=== PATIENT | female | born 1980 | race Caucasian/White ===

== ENCOUNTER 2017-02-08 19:56 | Emergency (ER) | payer BC, OTHER ==
[~2017-02-08 19:56] MED LIST: BUSP7.5T4 PO; IBUP600 PO
--- NOTE | 2017-02-08 21:16 | PD ---
HPI Chief Complaint High blood pressure Date Seen: Feb 08, 2017 Travel History International Travel<30 Days: No Contact w/Intl Traveler<30Days: No Known Affected Area: No History of Present Illness HPI Patient is 36-year-old white female [address] Bowers for care who has a history of chronic hypertension on medication now Aldomet 2 g daily and labetalol 50 mg twice a day, and the patient was at home today and she'll that her daughter take her blood pressure and it was high so she went to [facility] in her blood pressure checked and was 160/110 so she wanted to come here to be checked out. She has no headache blurry vision pain of any kind, no leakage of fluid or bleeding. No contractions seen, heart rate 140s. Blood pressures here are in the 137 to 150s over 90s which for chronic hypertensive is pretty normal blood pressures, urinalysis shows trace protein only Para: 2 : 5 History Past Medical History Narrative Medical Essential hypertension Obstetric History Obstetric History 2 vaginal deliveries 2 other early losses Social History Alcohol Use: No Tobacco Use: No Substance Abuse: No Allergies-Medications (Allergen,Severity, Reaction): Coded Allergies: No Known Allergies (Unverified , 01/13/15) Home Meds Active Scripts Buspirone Hcl 7.5 Mg Tab7.5 Mg PO BID #60 TAB Ref 1 Prov:Jo Bowers MD 11/05/15 Ibuprofen (Motrin 600 Mg Tab)600 Mg [id number] Mg PO Q6H PRN (CRAMPS) #30 TAB Ref 1 Prov:Jo Bowers MD 11/05/15 Review of Systems General / Constitutional: No: Fever, Weight Gain, Chills, Other Eyes: No: Diploplia, Blurred Vision, Visual changes, Pain, Photophobia HENT: No: Headaches, Vertigo, Lightheadedness Cardiovascular: No: Irregular Rhythm, Chest Pain or Discomfort, Palpitations, Tachycardia, Syncope, Varicosities, Edema, Cyanosis Respiratory: No: Cough, Short of Breath, Other Gastrointestinal: No: Nausea, Vomiting, Diarrhea Genitourinary: No: Decreased Urinary Output, Oliguria Musculoskeletal: No: Limited ROM, Weakness, Cramping, Edema, Pain Skin: No Rash, No Itching, No Dryness, No Lumps, No Change in Pigmentation, No Change in Nails, No Alopecia, No Lesions Neurologic: No: Weakness, Dizziness, Syncope, Focal Abnormalities, Coordination Problem, Headache, Slurred Speech, Seizures Psychiatric: No: Depression, Suicidal Ideations, Homicidal Ideation Endocrine: No: Heat Intolerance, Cold Intolerance, Polydipsia, Polyuria, Other Physical Exam Narrative GENERAL: Well-nourished, well-developed patient. SKIN: Warm and dry. HEAD: Normocephalic and atraumatic. EYES: No scleral icterus. No injection or drainage. ENT: No nasal drainage noted. Mucous membranes pink. Airway patent. NECK: Supple, trachea midline. No JVD. CARDIOVASCULAR: Regular rate and rhythm without murmurs, gallops, or rubs. RESPIRATORY: Breath sounds equal bilaterally. No accessory muscle use. BREASTS: Bilateral exam showed no masses , no retractions, no nipple discharge. ABDOMEN/GI: Abdomen soft, non-tender, bowel sounds present, no rebound, no guarding Gravid to [-20] weeks size Fundal Height: [At umbilicus-] GENITOURINARY: External Genitalia: intact and normal in appearance Membranes: [intact ] Uterine Contractions: [none-] FHT's: 140s ] E XTREMITIES: No cyanosis or edema. BACK: Nontender without obvious deformity. No CVA tenderness. NEUROLOGICAL: Awake and alert. Motor and sensory grossly within normal limits. Five out of 5 muscle strength in all muscle groups. Normal speech. Data Data Labs Urine dip trace protein only MDM Interpretation(s) Patient is 36-year-old white female at 20 weeks gestation followed in the [facility] a clinic has a history of chronic hypertension on 2 medications now[Aldomet 2 g a day and labetalol 50 mg twice a day], and had hypertension noted today in the 160+ over 110 range here on OB ED pressures are stable in the 137-150 over 90s range, urine was trace protein dip, heart tones within normal limits Plan Plan to discharge patient home to increase rest as needed to follow-up with Dr. Bowers for adjusting her medication she may need increase her labetalol 100 twice a day. Diagnosis Diagnosis: Primary Impression: 20 weeks gestation of Additional Impression: Chronic hypertension during , antepartum Disposition: 01 DISCHARGE HOME Condition: Stable Candido Richey II, MD Feb 08, 2017 21:16
== END 2017-02-08 21:57 | disposition home or self-care (01) ==
LOC: HOBED 19:56
DX: O16.2 Unspecified maternal hypertension, second trimester (principal); Z3A.20 20 weeks gestation of pregnancy
CPT/HCPCS: 99282

== ENCOUNTER 2017-05-20 16:19 | Inpatient (IN) | payer OTHER ==
[2017-05-20] VITALS (9 sets, daily range): BP systolic 151–179; BP diastolic 85–113; PULSE 85–99; RESP 16–18; TEMP 97.7–97.9
[~2017-05-20] VITALS: Ht 170.2 cm; Wt 102.5 kg
[2017-05-20 17:19] LABS: BLOOD, URINE NEG (NEG); GLUCOSE,URINE NEG (NEG); KETONE, URINE NEG (NEG); NITRITE,URINE NEG (NEG); PH, URINE 6.5 (5.0-8.5); SQUAMOUS EPITHELIAL CELL URINE <1 /hpf (0-5); URINE COLOR LIGHT-YELLOW (YELLW/STRAW)
[2017-05-20 17:20] LABS: COMMENT (UR) CULT NOT INDICATED; CULTURE IF INDICATED CULT NOT INDICATED
--- NOTE | 2017-05-20 17:36 | PD ---
HPI Chief Complaint High blood pressure Date Seen: May 20, 2017 Time Seen: 17:55 Travel History International Travel<30 Days: No Contact w/Intl Traveler<30Days: No Known Affected Area: No History of Present Illness HPI Patient is a 37-year-old white female 34 weeks who has a history of high blood pressure and is on Aldomet 2000 mg daily and labetalol by mouth 100 mg in the morning and 50 mg in the evening . Has No other complaints or problems no headache or visual changes right upper quadrant pain or swelling, heart rate tracing is reactive she is having occasional contractions Weeks Gestation: 34 Para: 2 : 5 Last Menstrual Period: May 20, 2017 History Past Medical History Narrative Medical Chronic hypertension long-term Obstetric History Obstetric History 2 vaginal deliveries in the past and 2 early losses Social History Alcohol Use: No Tobacco Use: No Substance Abuse: No Allergies-Medications (Allergen,Severity, Reaction): Coded Allergies: No Known Allergies (Unverified , 01/13/15) Home Meds Active Scripts Buspirone Hcl (Buspirone Hcl) 7.5 Mg Tab, 7.5 MG PO BID for Anxiety, #60 TAB 1 Refill Prov:Jo Bowers MD 11/05/15 Ibuprofen (Motrin 600 Mg Tab) 600 Mg Tab, 600 MG PO Q6H Y for CRAMPS, #30 TAB 1 Refill Prov:Jo Bowers MD 11/05/15 Review of Systems General / Constitutional: No: Fever, Weight Gain, Chills, Other Eyes: No: Diploplia, Blurred Vision, Visual changes, Pain, Photophobia HENT: No: Headaches, Vertigo, Lightheadedness Cardiovascular: No: Irregular Rhythm, Chest Pain or Discomfort, Palpitations, Tachycardia, Syncope, Varicosities, Edema, Cyanosis Respiratory: No: Cough, Short of Breath, Other Gastrointestinal: No: Nausea, Vomiting, Diarrhea Genitourinary: No: Decreased Urinary Output, Oliguria Musculoskeletal: No: Limited ROM, Weakness, Cramping, Edema, Pain Skin: No Rash, No Itching, No Dryness, No Lumps, No Change in Pigmentation, No Change in Nails, No Alopecia, No Lesions Neurologic: No: Weakness, Dizziness, Syncope, Focal Abnormalities, Coordination Problem, Headache, Slurred Speech, Seizures Psychiatric: No: Depression, Suicidal Ideations, Homicidal Ideation Endocrine: No: Heat Intolerance, Cold Intolerance, Polydipsia, Polyuria, Other Physical Exam Vital Signs Date Time Temp Pulse Resp B/P (MAP) Pulse Ox O2 Delivery O2 Flow Rate FiO2 05/20/17 17:15 86 164/105 (124) 05/20/17 17:01 87 05/20/17 17:01 158/107 (124) Narrative GENERAL: Well-nourished, well-developed patient. SKIN: Warm and dry. HEAD: Normocephalic and atraumatic. EYES: No scleral icterus. No injection or drainage. ENT: No nasal drainage noted. Mucous membranes pink. Airway patent. NECK: Supple, trachea midline. No JVD. CARDIOVASCULAR: Regular rate and rhythm without murmurs, gallops, or rubs. RESPIRATORY: Breath sounds equal bilaterally. No accessory muscle use. BREASTS: Bilateral exam showed no masses , no retractions, no nipple discharge. ABDOMEN/GI: Abdomen soft, non-tender, bowel sounds present, no rebound, no guarding Gravid to [34-] weeks size Fundal Height: [-34] GENITOURINARY: Membranes: [intact ] Uterine Contractions: [occasional not painful-] FHT's: Category: [-1] Baseline: [133-] Reactive: [-yes] Variability: [mod-] Decels: [0-] EXTREMITIES: No cyanosis or edema. BACK: Nontender without obvious deformity. No CVA tenderness. NEUROLOGICAL: Awake and alert. Motor and sensory grossly within normal limits. Five out of 5 muscle strength in all muscle groups. Normal speech. Data Data Orders Orders Vital Signs (Adult) .ON ADMISSION (05/20/17 16:59) ^ Labor Status (05/20/17 16:59) Urinalysis - C+S If Indicated (05/20/17 16:59) Labs Urine dipstick is negative for protein Laboratory Tests Test 05/20/17 00:00 Urine Color LIGHT-YELLOW Urine Turbidity CLEAR Urine pH 6.5 Urine Specific Lykens 1.003 Urine Protein NEG Urine Glucose (UA) NEG Urine Ketones NEG Urine Occult Blood NEG Urine Nitrite NEG Urine Bilirubin NEG Urine Urobilinogen LESS THAN 2.0 Urine Leukocyte Esterase NEG Urine WBC 1 Urine Squamous Epithelial Cells <1 Microscopic Urinalysis Comment CULT NOT INDICATED MDM Interpretation(s) Patient is a 37-year-old white female at [address] Bowers for care she noted her pressure high at home and called the office and the on-call nurse told her to come here. She takes 2000 mg of Aldomet daily, labetalol 100 mg the morning and 50 at night.. And as long she's laying down his pressures are acceptable in the 130 over 80s or 150/90 range. However when she stands up and is active and she says she is active running around all day her blood pressures are 170/100 or 110 she had her blood drawn today for a CMP and CBC those results are unknown there were drawn an outside lab, she is urinalysis here tonight with negative protein her NST is reactive and she is having occasional contraction that she does not feel Plan Plan for the patient to increase her labetalol dose to 100 twice a day, to continue her Aldomet she takes currently but she says Dr. Bowers is planning to increase that to 3000 mg a day. She is also encouraged to increase the amount of rest that she is getting now that she says she's very active and going all day long; she needs to cut back on that and be off her feet a little bit more [not strictly bedrest] but to be at increased rest throughout the day periodically, and a follow-up with Dr. Bowers tomorrow about her lab results drawn today and her pressures running Diagnosis Diagnosis: Primary Impression: Chronic hypertension during , antepartum Additional Impression: 34 weeks gestation of Disposition: 01 DISCHARGE HOME Condition: Stable Candido Richey II, MD May 20, 2017 17:36
[2017-05-20] MEDS ORDERED: GLUCAGON 1 MG/ML VIAL IM PRN (19:15)
[2017-05-20] MEDS ORDERED: SODIUM CHLORIDE 0.9% FLUSH 5 ML FLUSH IV FLUSH PRN (19:15)
[2017-05-20] MEDS ORDERED: NIFEdipine 10 MG CAP PO PRN ×3 (19:15→20:00)
[2017-05-20] MEDS ORDERED: DOCUSATE SODIUM 100 MG CAP PO PRN (19:15)
[2017-05-20] MEDS ORDERED: DEXTROSE 50% IN WATER 50 ML VIAL(D50) IV PUSH PRN (19:15)
[2017-05-20] MEDS ORDERED: ONDANSETRON HCL 4 MG/2 ML VIAL IV PUSH PRN (19:15)
[2017-05-20] MEDS: LABETALOL HCL 100 MG TAB PO SCH ×2 (19:30→19:42)
[2017-05-20] MEDS ORDERED: LIDOCAINE HCL 1% 50 ML VIAL ONE (19:33)
[2017-05-20] MEDS: METHYLDOPA 500 MG TAB PO SCH ×2 (19:39→19:42)
[2017-05-20] MEDS: SODIUM CHLORIDE 0.9% FLUSH 5 ML FLUSH IV FLUSH SCH (19:43)
[2017-05-20] MEDS ORDERED: LABE100T2 PO (19:46)
[2017-05-20] MEDS ORDERED: METH500T PO (19:47)
[2017-05-20] MEDS ORDERED: Prenatal Vitamin PO (19:51)
[2017-05-20] MEDS: BETAMETHASONE SOD PHOS/ACETATE SUSP 30 MG/5 ML VIAL IM SCH (20:16)
[2017-05-20] MEDS: ACETAMINOPHEN 325 MG TAB PO PRN (20:23)
[2017-05-20 20:58] LABS: HEMATOCRIT 33.9 % (35.0-46.0); MEAN CELL VOLUME 83.4 FL (80.0-100.0); MEAN CORPUSCULAR HEMOGLOBIN 27.5 PG (27.0-34.0); PLATELET COUNT 198 TH/MM3 (150-450); RED BLOOD COUNT 4.07 MIL/MM3 (4.00-5.30); RED CELL DISTRIBUTION WIDTH 13.9 % (11.6-17.2); REVIEW FLAG FINAL
[2017-05-20 21:21] LABS: ALT (GPT) 30 U/L (10-53)
[2017-05-20 21:23] LABS: ALKALINE PHOSPHATASE 77 U/L (45-117); TOTAL BILIRUBIN ADULT 0.2 MG/DL (0.2-1.0)
[2017-05-20 21:29] LABS: ANION GAP 10 MEQ/L (5-15); AST (GOT) 32 U/L (15-37); BICARBONATE 22.3 MEQ/L (21.0-32.0); BLOOD UREA NITROGEN 9 MG/DL (7-18); CHLORIDE 105 MEQ/L (98-107); GLOMERULAR FILTRATION RATE 83 ML/MIN (>89); POTASSIUM 4.2 MEQ/L (3.5-5.1); SODIUM (NA) 137 MEQ/L (136-145); URIC ACID 4.5 MG/DL (2.6-6.0)
[2017-05-20] MEDS ORDERED: FAMOTIDINE 20 MG TAB PO PRN (23:00)
[2017-05-21] VITALS (18 sets, daily range): BP systolic 134–177; BP diastolic 84–104; PULSE 77–104; RESP 13–18; TEMP 97.7–98.1
[2017-05-21] MEDS: ACETAMINOPHEN 325 MG TAB PO PRN (04:36)
[2017-05-21 05:56] LABS: HEMATOCRIT 34.7 % (35.0-46.0); MEAN CELL VOLUME 83.8 FL (80.0-100.0); MEAN CORPUSCULAR HEMOGLOBIN 27.9 PG (27.0-34.0); MEAN CORPUSCULAR HGB CONC 33.2 % (32.0-36.0); PLATELET COUNT 196 TH/MM3 (150-450); RED BLOOD COUNT 4.14 MIL/MM3 (4.00-5.30); RED CELL DISTRIBUTION WIDTH 13.9 % (11.6-17.2); REVIEW FLAG FINAL; WHITE BLOOD COUNT 8.1 TH/MM3 (4.0-11.0)
[2017-05-21 06:35] LABS: ANION GAP 12 MEQ/L (5-15); AST (GOT) 19 U/L (15-37); BICARBONATE 18.8 MEQ/L (21.0-32.0); BLOOD UREA NITROGEN 10 MG/DL (7-18); CHLORIDE 106 MEQ/L (98-107); GLOMERULAR FILTRATION RATE 106 ML/MIN (>89); POTASSIUM 4.2 MEQ/L (3.5-5.1); SODIUM (NA) 137 MEQ/L (136-145); URIC ACID 4.4 MG/DL (2.6-6.0)
[2017-05-21 06:36] LABS: ALT (GPT) 28 U/L (10-53)
[2017-05-21 06:38] LABS: ALKALINE PHOSPHATASE 81 U/L (45-117); TOTAL BILIRUBIN ADULT 0.2 MG/DL (0.2-1.0)
--- NOTE | 2017-05-21 08:34 | HHI.HP ---
HPI Chief Complaint admitted overnight for severe range BPs in setting of CHTN Date Seen: May 20, 2017 Time Seen: 19:00 Travel History International Travel<30 Days: No Contact w/Intl Traveler<30Days: No Known Affected Area: No History of Present Illness HPI 37 yo with tompkins male IUP at 34w6d admit last evening after coming in for reported elevated BPs at home. Has chronic hypertension, had been taking aldomet 1000mg bid and labetalol 100mg qAM and 50mg QPM. Had increased her dose of labetalol to 100mg bid yesterday but pressures at home remained severe range 170s/100s reported. On triage evaluation pressures were similarly elevated and decision for 23h obs and PreEclampsia workup. Pt is without symptoms, no edema, no vision changes, no headache, no RUQ pain. Labs are wnl last evening and this morning as well. has been complicated by CHTN as well as GDM diet controlled and AMA status. Testing has been normal weekly starting at 28 weeks outpatient. Pain currently 0/10. Did require single dose procardia on admission with good control of BP. 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 Past Surgical History Surgical History: No Previous Surgery Family History Family History: Negative Social History Alcohol Use: No Tobacco Use: No Substance Abuse: No Allergies-Medications (Allergen,Severity, Reaction): Coded Allergies: No Known Allergies (Unverified , 01/13/15) Home Meds Reported Medications [ Vitamin] No Conflict Check, 1 TAB PO DAILY 05/20/17 Methyldopa (Methyldopa) 500 Mg Tab, 1000 MG PO TID for Blood Pressure Management , TAB 0 Refills 05/20/17 Labetalol (Labetalol) 100 Mg Tab, 100 MG PO BID for Blood Pressure Management, TAB 0 Refills 05/20/17 Discontinued Scripts Buspirone Hcl (Buspirone Hcl) 7.5 Mg Tab, 7.5 MG PO BID for Anxiety, #60 TAB 1 Refill Prov:Jo Bowers MD 11/05/15 Ibuprofen (Motrin 600 Mg Tab) 600 Mg Tab, 600 MG PO Q6H Y for CRAMPS, #30 TAB 1 Refill Prov:Jo Bowers MD 11/05/15 Review of Systems General / Constitutional: Weight Gain, No: Fever, Chills, Other Eyes: No: Diploplia, Blurred Vision, Visual changes, Pain, Photophobia HENT: No: Headaches, Vertigo, Lightheadedness Cardiovascular: No: Irregular Rhythm, Chest Pain or Discomfort, Palpitations, Tachycardia, Syncope, Varicosities, Edema, Cyanosis Respiratory: No: Cough, Short of Breath, Other Gastrointestinal: No: Nausea, Vomiting, Diarrhea Genitourinary: Pelvic Pain (irregular pressure/cramps), No: Decreased Urinary Output, Oliguria Musculoskeletal: No: Limited ROM, Weakness, Cramping, Edema, Pain Skin: No Rash, No Itching, No Dryness, No Lumps, No Change in Pigmentation, No Change in Nails, No Alopecia, No Lesions Neurologic: No: Weakness, Dizziness, Syncope, Focal Abnormalities, Coordination Problem, Headache, Slurred Speech, Seizures Psychiatric: No: Depression, Suicidal Ideations, Homicidal Ideation Endocrine: No: Heat Intolerance, Cold Intolerance, Polydipsia, Polyuria, Other Physical Exam Vital Signs Date Time Temp Pulse Resp B/P (MAP) Pulse Ox O2 Delivery O2 Flow Rate FiO2 05/21/17 03:44 88 145/86 (105) 05/21/17 03:00 97.7 05/21/17 03:00 13 05/21/17 03:00 95 134/84 (101) 05/20/17 23:00 97.9 18 05/20/17 22:35 97 151/85 (107) 05/20/17 20:03 85 156/100 (118) 05/20/17 19:40 16 05/20/17 19:29 89 178/102 (127) 05/20/17 19:11 97.7 05/20/17 19:10 99 179/113 (135) 05/20/17 17:15 86 164/105 (124) 05/20/17 17:01 87 05/20/17 17:01 158/107 (124) Narrative GENERAL: Well-nourished, well-developed patient. SKIN: Warm and dry. HEAD: Normocephalic and atraumatic. EYES: No scleral icterus. No injection or drainage. ENT: No nasal drainage noted. Mucous membranes pink. Airway patent. NECK: Supple, trachea midline. No JVD. CARDIOVASCULAR: Regular rate and rhythm without murmurs, gallops, or rubs. RESPIRATORY: Breath sounds equal bilaterally. No accessory muscle use. BREASTS: deferred. ABDOMEN/GI: Abdomen soft, non-tender, bowel sounds present, no rebound, no guarding Gravid to [34] weeks size Fundal Height: [35] GENITOURINARY: deferred FHT's: Category:I reactive tracing overnight EXTREMITIES: No cyanosis or edema. BACK: Nontender without obvious deformity. No CVA tenderness. NEUROLOGICAL: Awake and alert. Motor and sensory grossly within normal limits. Five out of 5 muscle strength in all muscle groups. Normal speech. Caprini VTE Risk Assessment Caprini VTE Risk Assessment: No/Low Risk (score <= 1) VTE Pharm Contraindication: High risk for bleeding Caprini Risk Assessment Model Point Value = 1 Point Value = 2 Point Value = 3 Point Value = 5 Age 41-60 Minor surgery BMI > 25 kg/m2 Swollen legs Varicose veins or History of unexplained or recurrent spontaneous Oral contraceptives or hormone replacement Sepsis (< 1 month) Serious lung disease, including pneumonia (< 1 month) Abnormal pulmonary function Acute myocardial infarction Congestive heart failure (< 1 month) History of inflammatory bowel disease Medical patient at bed rest Age 61-74 Arthroscopic surgery Major open surgery (> 45 min) Laparoscopic surgery (> 45 min) Malignancy Confined to bed (> 72 hours) Immobilizing plaster cast Central venous access Age >= 75 History of VTE Family history of VTE Factor V Leiden Prothrombin [id number] Lupus anticoagulant Anticardiolipin antibodies Elevated serum homocysteine Heparin-induced thrombocytopenia Other congenital or acquired thrombophilia Stroke (< 1 month) Elective arthroplasty Hip, pelvis, or leg fracture Acute spinal cord injury (< 1 month) Prophylaxis Regimen Total Risk Factor Score Risk Level Prophylaxis Regimen 0-1 Low Early ambulation 2 Moderate Order ONE of the following: *Sequential Compression Device (SCD) *Heparin 5000 units SQ BID 3-4 Higher Order ONE of the following medications: *Heparin 5000 units SQ TID *Enoxaparin/Lovenox 40 mg SQ daily (WT < 150 kg, CrCl > 30 mL/min) *Enoxaparin/Lovenox 30 mg SQ daily (WT < 150 kg, CrCl > 10-29 mL/min) *Enoxaparin/Lovenox 30 mg SQ BID (WT < 150 kg, CrCl > 30 mL/min) AND/OR *Sequential Compression Device (SCD) 5 or more Highest Order ONE of the following medications: *Heparin 5000 units SQ TID (Preferred with Epidurals) *Enoxaparin/Lovenox 40 mg SQ daily (WT < 150 kg, CrCl > 30 mL/min) *Enoxaparin/Lovenox 30 mg SQ daily (WT < 150 kg, CrCl > 10-29 mL/min) *Enoxaparin/Lovenox 30 mg SQ BID (WT < 150 kg, CrCl > 30 mL/min) AND *Sequential Compression Device (SCD) Data Data Vital Signs Reviewed: Yes Orders Orders Vital Signs (Adult) .ON ADMISSION (05/20/17 16:59) ^ Labor Status (05/20/17 16:59) Urinalysis - C+S If Indicated (05/20/17 16:59) Ob (2e) Additional Admit Info (05/20/17 18:33) Place In Observation (05/20/17 ) Code Status (05/20/17 19:06) Resp Pulse Oximetry (05/20/17 ) Activity Bed Rest (05/20/17 19:06) Notify Parameters (05/20/17 19:06) Heart CONTINUOUS (05/20/17 19:06) Sodium Chloride 0.9% Flush (Ns Flush) (05/20/17 19:15) Sodium Chloride 0.9% Flush (Ns Flush) (05/20/17 21:00) Nifedipine (Procardia) (05/20/17 19:15) Nifedipine (Procardia) (05/20/17 19:30) Nifedipine (Procardia) (05/20/17 20:00) Betamethasone Inj (Celestone Soluspan In (05/20/17 20:00) Acetaminophen (Tylenol) (05/20/17 19:15) Ondansetron Inj (Zofran Inj) (05/20/17 19:15) Docusate Sodium (Colace) (05/20/17 19:15) Shcqneqw-Rym-Dbtaw-Iron Prenat (Stuartna (05/21/17 09:00) Zolpidem (Ambien) (05/20/17 19:15) Cbc No Diff, Includes Plts (05/20/17 19:06) Cbc No Diff, Includes Plts (05/21/17 06:00) Comprehensive Metabolic Panel (05/20/17 19:06) Comprehensive Metabolic Panel (05/21/17 06:00) Uric Acid (05/20/17 19:06) Uric Acid (05/21/17 06:00) Total Protein 24hr Urine (05/20/17 19:06) Creatinine 24 Hr Urine (05/20/17 19:06) Diet Ob Consistent Carb (05/21/17 Breakfast) Vital Signs (Adult) [id number] AWAKE (05/20/17 19:06) Bedside Glucose . ORDERED (05/20/17 19:06) Bedside Glucose Q15M (05/20/17 19:06) Hypoglycemia 70 Mg/Dl Or < (05/20/17 19:06) Dextrose 50% In Katlyn (Vial) Inj (D50w (Vi (05/20/17 19:15) Glucagon Inj (Glucagon Inj) (05/20/17 19:15) Methyldopa (Aldomet) (05/20/17 20:00) Labetalol (Trandate) (05/20/17 19:30) Lidocaine 1% Inj (50 Ml) (Xylocaine 1% I (05/20/17 19:33) ^ Insert Iv (05/20/17 19:57) Famotidine (Pepcid) (05/20/17 23:00) Scd / Dani / Foot Pump (05/21/17 08:04) Us Ob Bpp Wo Nst W Umb Art Dop (05/21/17 ) Us Ob Repeat/Fu(Growth) (05/21/17 ) Labs Laboratory Tests Test 05/20/17 19:45 05/21/17 05:14 White Blood Count 8.0 8.1 Red Blood Count 4.07 4.14 Hemoglobin 11.2 11.5 Hematocrit 33.9 34.7 Mean Corpuscular Volume 83.4 83.8 Mean Corpuscular Hemoglobin 27.5 27.9 Mean Corpuscular Hemoglobin Concent 33.0 33.2 Red Cell Distribution Width 13.9 13.9 Platelet Count 198 196 Mean Platelet Volume 10.2 10.3 Blood Urea Nitrogen 9 10 Creatinine 0.78 0.63 Random Glucose 157 130 Total Protein 6.2 6.3 Albumin 2.4 2.4 Calcium Level 8.9 8.6 Uric Acid 4.5 4.4 Alkaline Phosphatase 77 81 Aspartate Amino Transf (AST/SGOT) 32 19 Alanine Aminotransferase (ALT/SGPT) 30 28 Total Bilirubin 0.2 0.2 Sodium Level 137 137 Potassium Level 4.2 4.2 Chloride Level 105 106 Carbon Dioxide Level 22.3 18.8 Anion Gap 10 12 Estimat Glomerular Filtration Rate 83 106 Assessment/Plan Problem List: (1) Chronic hypertension during , antepartum ICD Codes: O10.919 - Unspecified pre-existing hypertension complicating , unspecified trimester Status: Acute (2) 34 weeks gestation of ICD Codes: Z3A.34 - 34 weeks gestation of Status: Acute (3) Gestational diabetes ICD Codes: O24.419 - Gestational diabetes mellitus in , unspecified control Status: Acute Qualifiers: Qualified Codes: O24.410 - Gestational diabetes mellitus in , diet controlled (4) AMA (advanced maternal age) multigravida 35+ ICD Codes: O09.529 - Supervision of elderly multigravida, unspecified trimester Status: Acute Qualifiers: Qualified Codes: O09.523 - Supervision of elderly multigravida, third trimester Assessment and Plan 37 yo with tompkins male IUP at 34w5d admit overnight for severe range BPs in setting of CHTN 1) CHTN: on aldomet 1000mg bid and labetalol 100mg bid as outpatient, on admission last evening requiring single dose procardia with good result; no severe range BPs overnight, continue to monitor closely for additional medication adjustment as needed - 24h urine started, due to end around 1900 tonight - PI labs wnl x 2 - asymptomatic at this time, denies ZAMORA, vision changes, RUQ pain, edema - betamethasone ordered, s/p 1/2 doses 2) GDM: very good control with diet; due to administration of betamethasone will hold glucose checks today; has had excellent control as outpatient, pt diligent with diet/nutrition 3) AMA: normal anatomy sono, neg cfDNA and msAFP; has had testing weekly since 28 wks due to CHTN & GDM & AMA; all reassuring 4) GBS unknown: swab performed yesterday in office, pending 5) status: male, vertex; official sono with weight estimate ordered for today; Cat I tracing overnight 6) PPX: SCDs ordered 7) dispo: not meeting criteria, continue to monitor closely at this time Discharge Planning not meeting criteria Jo Bowers MD May 21, 2017 08:33
[2017-05-21] MEDS: SODIUM CHLORIDE 0.9% FLUSH 5 ML FLUSH IV FLUSH SCH ×2 (09:00→21:00)
[2017-05-21] MEDS: MULTIVIT/MIN/PREN/FOL AC/IRON PRENATAL TAB PO SCH (09:09)
[2017-05-21] MEDS: LABETALOL HCL 100 MG TAB PO SCH (09:09)
[2017-05-21] MEDS: METHYLDOPA 500 MG TAB PO SCH ×2 (09:09→21:00)
[2017-05-21] MEDS: FAMOTIDINE 20 MG TAB PO PRN (14:25)
[2017-05-21] MEDS ORDERED: LABETALOL HCL 100 MG/20 ML VIAL ONE (19:27)
[2017-05-21] MEDS ORDERED: LABETALOL HCL 100 MG/20 ML VIAL IV PUSH ONE (19:45)
[2017-05-21] MEDS ORDERED: NIFEdipine 10 MG CAP ONE (20:07)
[2017-05-21] MEDS: BETAMETHASONE SOD PHOS/ACETATE SUSP 30 MG/5 ML VIAL IM SCH (20:15)
[2017-05-21 20:22] LABS: URINE TOTAL PROTEIN TIMED 29.4 MG/DL
[2017-05-21 20:26] LABS: CREAT 24 TIMED 71.6 MG/DL
[2017-05-21] MEDS ORDERED: NIFEdipine 10 MG CAP PO ONE (20:30)
[2017-05-21] MEDS ORDERED: LABETALOL HCL 100 MG TAB PO SCH (21:00)
[2017-05-21] MEDS ORDERED: LABETALOL HCL 200 MG TAB PO SCH (21:00)
[2017-05-22] VITALS (15 sets, daily range): BP systolic 143–171; BP diastolic 83–97; PULSE 82–97; RESP 17–22; TEMP 97.8–98.1
[2017-05-22 06:32] LABS: AUTOMATED NEUTROPHIL # 8.9 TH/MM3 (1.8-7.7); BASOPHIL % 0.1 % (0.0-2.0); HEMATOCRIT 33.5 % (35.0-46.0); LYMPH % 13.8 % (9.0-44.0); LYMPHOCYTE # 1.5 TH/MM3 (1.0-4.8); MEAN CORPUSCULAR HEMOGLOBIN 27.8 PG (27.0-34.0); MEAN CORPUSCULAR HGB CONC 33.1 % (32.0-36.0); MONO % 5.3 % (0.0-8.0); NEUT % 80.8 % (16.0-70.0); PLATELET COUNT 197 TH/MM3 (150-450); RED BLOOD COUNT 3.99 MIL/MM3 (4.00-5.30); RED CELL DISTRIBUTION WIDTH 13.8 % (11.6-17.2); WHITE BLOOD COUNT 11.1 TH/MM3 (4.0-11.0)
[2017-05-22 06:57] LABS: ALT (GPT) 28 U/L (10-53); ANION GAP 12 MEQ/L (5-15); AST (GOT) 14 U/L (15-37); BICARBONATE 18.6 MEQ/L (21.0-32.0); BLOOD UREA NITROGEN 12 MG/DL (7-18); CHLORIDE 107 MEQ/L (98-107); GLOMERULAR FILTRATION RATE 94 ML/MIN (>89); POTASSIUM 3.9 MEQ/L (3.5-5.1); SODIUM (NA) 138 MEQ/L (136-145); URIC ACID 4.3 MG/DL (2.6-6.0)
[2017-05-22 07:00] LABS: ALKALINE PHOSPHATASE 84 U/L (45-117); HEMO FLAGS AUTO DIFF; TOTAL BILIRUBIN ADULT 0.2 MG/DL (0.2-1.0)
[2017-05-22] MEDS: METHYLDOPA 500 MG TAB PO SCH ×2 (08:49→20:53)
[2017-05-22] MEDS: MULTIVIT/MIN/PREN/FOL AC/IRON PRENATAL TAB PO SCH (08:50)
[2017-05-22] MEDS: SODIUM CHLORIDE 0.9% FLUSH 5 ML FLUSH IV FLUSH SCH ×2 (08:51→21:00)
[2017-05-22] MEDS ORDERED: LABETALOL HCL 300 MG TAB PO SCH (09:00)
[2017-05-22 09:51] LABS: SCAN/DIFF AUTO DIFF CONFIRMED
[2017-05-22] MEDS: FAMOTIDINE 20 MG TAB PO PRN (11:30)
[2017-05-22] MEDS ORDERED: LABETALOL HCL 100 MG TAB PO ONE (12:00)
--- NOTE | 2017-05-22 14:39 | HHI.PR ---
Subjective Remarks Doing well No h/a, scotoma, RUQ pain or swelling. Feeling fine Tolerating diet. No rom, ruc or bleeding Good fm Objective Vital Signs Date Time Temp Pulse Resp B/P (MAP) Pulse Ox O2 Delivery O2 Flow Rate FiO2 05/22/17 11:24 98.1 18 05/22/17 11:15 91 152/96 (114) 05/22/17 08:42 97.9 97 22 143/91 (108) 05/22/17 05:13 83 153/86 (108) 05/22/17 05:12 18 05/22/17 05:00 18 05/22/17 04:00 18 05/22/17 03:00 18 05/22/17 02:00 18 05/22/17 00:58 87 153/83 (106) 05/22/17 00:57 98.1 17 05/22/17 00:00 18 05/21/17 22:55 18 05/21/17 22:11 102 135/87 (103) 05/21/17 22:00 18 05/21/17 21:31 101 152/94 (113) 05/21/17 21:01 104 150/94 (112) 05/21/17 20:13 77 177/104 (128) 05/21/17 19:07 80 162/100 (120) 05/21/17 19:06 98.0 18 05/21/17 17:58 86 153/90 (111) 05/21/17 17:55 85 162/102 (122) 05/21/17 17:36 93 171/91 (117) 05/21/17 16:00 89 168/101 (123) Result Diagram: 05/22/17 0555 05/22/17 0555 Other Results WDWN without any swelling Chest is clear CV RRR Abd is gravid and NT, no liver tenderness. Ext No CCE, DTR +2 Assessment and Plan Assessment and Plan HD #2 Don't feel she has pre eclampsia, defiantly not severe Urine protein went from 600mg to 800 mg No reason to deliver her now Will increase her labetalol to 400mg bid. Milton Kimble MD May 22, 2017 14:39
[2017-05-22] MEDS: ZOLPIDEM TARTRATE 5 MG TAB PO PRN (20:53)
[2017-05-22] MEDS: LABETALOL HCL 200 MG TAB PO SCH (20:53)
[2017-05-23] VITALS (17 sets, daily range): BP systolic 141–171; BP diastolic 78–102; PULSE 73–85; RESP 18–20; TEMP 97.7–98.3
[2017-05-23] MEDS: LABETALOL HCL 200 MG TAB PO SCH ×2 (09:05→21:07)
[2017-05-23] MEDS: METHYLDOPA 500 MG TAB PO SCH ×2 (09:05→21:07)
[2017-05-23] MEDS: MULTIVIT/MIN/PREN/FOL AC/IRON PRENATAL TAB PO SCH (09:05)
[2017-05-23] MEDS: SODIUM CHLORIDE 0.9% FLUSH 5 ML FLUSH IV FLUSH SCH ×2 (09:06→21:00)
[2017-05-23] MEDS: FAMOTIDINE 20 MG TAB PO PRN ×2 (09:34→21:07)
--- NOTE | 2017-05-23 12:16 | HHI.PR ---
Subjective Remarks Doing well, resting in bed No h/a, scotoma, RUQ pain or swelling. Feeling fine Tolerating diet. No rom, ruc or bleeding Good fm Objective Vital Signs Date Time Temp Pulse Resp B/P (MAP) Pulse Ox O2 Delivery O2 Flow Rate FiO2 05/23/17 11:54 98.3 18 05/23/17 11:54 80 151/87 (108) 05/23/17 08:56 98.3 05/23/17 08:55 20 05/23/17 08:54 85 154/97 (116) 05/23/17 06:45 97.7 18 05/23/17 06:43 82 159/93 (115) 05/22/17 22:04 82 158/95 (116) 05/22/17 20:11 97.8 18 05/22/17 20:11 91 171/97 (121) 05/22/17 16:36 83 152/88 (109) Result Diagram: 05/22/17 0555 05/22/17 0555 Other Results WDWN in NAD No swelling. Chest clear CV RRR Abd gravid, soft non tender. Ext No CCE Assessment and Plan Assessment and Plan HD #3 Don't feel she has pre eclampsia, defiantly not severe. She does have labile BPs but she has no other sx. Urine protein went from 600mg to 800 mg No reason to deliver her now Will repeat labs and 24 hour urine tomorrow. Discussed Condition With patient Milton Kimble MD May 23, 2017 12:16
[2017-05-23] MEDS ORDERED: MORPHINE SULFATE 4 MG/ML INJ ONE (15:57)
[2017-05-23] MEDS ORDERED: NIFEdipine 10 MG CAP ONE (15:57)
[2017-05-23] MEDS ORDERED: MORPHINE SULFATE 4 MG/ML INJ IV PUSH ONE (16:00)
[2017-05-23] MEDS ORDERED: LACTATED RINGER'S 1000 ML INJ 1,000 ML IV ONE (16:00)
[2017-05-23] MEDS ORDERED: NIFEdipine 10 MG CAP PO ONE (16:15)
[2017-05-23] MEDS ORDERED: TERBUTALINE INJ 1 MG/ML AMP SQ PRN (16:30)
[2017-05-23] MEDS: ACETAMINOPHEN 325 MG TAB PO PRN (18:49)
[2017-05-23] MEDS: ZOLPIDEM TARTRATE 5 MG TAB PO PRN (21:43)
[2017-05-24] VITALS (14 sets, daily range): BP systolic 124–160; BP diastolic 70–88; PULSE 70–88; RESP 18–20; TEMP 94.7–99
[2017-05-24] MEDS: LACTATED RINGER'S 1000 ML INJ 1,000 ML IV SCH ×2 (04:50→15:00)
[2017-05-24 06:01] LABS: HEMATOCRIT 33.5 % (35.0-46.0); MEAN CELL VOLUME 83.5 FL (80.0-100.0); MEAN CORPUSCULAR HEMOGLOBIN 28.1 PG (27.0-34.0); MEAN CORPUSCULAR HGB CONC 33.7 % (32.0-36.0); PLATELET COUNT 181 TH/MM3 (150-450); RED BLOOD COUNT 4.01 MIL/MM3 (4.00-5.30); RED CELL DISTRIBUTION WIDTH 13.8 % (11.6-17.2); REVIEW FLAG FINAL; WHITE BLOOD COUNT 9.5 TH/MM3 (4.0-11.0)
[2017-05-24 06:28] LABS: URIC ACID 4.3 MG/DL (2.6-6.0)
[2017-05-24 06:30] LABS: INDIRECT BILIRUBIN 0.1 MG/DL (0.0-0.8); TOTAL BILIRUBIN ADULT 0.2 MG/DL (0.2-1.0)
[2017-05-24] MEDS ORDERED: SODIUM CHLORIDE 0.9% FLUSH 10 ML FLUSH IV FLUSH PRN (07:30)
--- NOTE | 2017-05-24 07:41 | PD.OB.ANTE ---
Subjective Diagnosis: (1) Chronic hypertension during , antepartum (2) 34 weeks gestation of (3) Gestational diabetes (4) AMA (advanced maternal age) multigravida 35+ Interval History 35 1/7 IUP with hypertension that is fairly labile here since treated with IV BP meds several times over weekend only protein slightly off in urine; labs otherwise normal denies ZAMORA, nausea, vomiting, blurred vision or RUQT hx of pre eclampsia with proteinuria and successful 36 week induction 6 years ago. no edema 1/4 DTRs 150s/80s 3 cm -2 50% deviated to patient's left strip category 1 occ UCs anticipate delivery this week either spontaneous or induced for elevated BPS and other symptoms reassured with ACS performed and reassuring assessment Objective Vital Signs Vital Signs Date Time Temp Pulse Resp B/P (MAP) Pulse Ox O2 Delivery O2 Flow Rate FiO2 05/24/17 06:01 75 132/78 (96) 05/24/17 01:17 18 05/24/17 01:17 97.7 05/24/17 01:17 76 130/70 (90) 05/23/17 23:29 79 141/78 (99) 05/23/17 21:45 98.2 18 05/23/17 21:36 79 148/87 (107) 05/23/17 21:06 81 168/97 (120) 05/23/17 20:00 18 05/23/17 18:49 79 156/98 (117) 05/23/17 18:37 80 05/23/17 16:59 80 151/94 (113) 05/23/17 16:26 81 153/91 (111) 05/23/17 15:43 81 164/101 (122) 05/23/17 15:29 73 168/102 (124) 05/23/17 15:27 75 171/102 (125) 05/23/17 11:54 98.3 18 05/23/17 11:54 80 151/87 (108) 05/23/17 08:56 98.3 05/23/17 08:55 20 05/23/17 08:54 85 154/97 (116) Lab & Micro Results Test 05/23/17 19:10 05/24/17 05:33 Group B Streptococcus (PCR) NEGATIVE White Blood Count 9.5 TH/MM3 Red Blood Count 4.01 MIL/MM3 Hemoglobin 11.3 GM/DL Hematocrit 33.5 % Mean Corpuscular Volume 83.5 FL Mean Corpuscular Hemoglobin 28.1 PG Mean Corpuscular Hemoglobin Concent 33.7 % Red Cell Distribution Width 13.8 % Platelet Count 181 TH/MM3 Mean Platelet Volume 10.3 FL Uric Acid 4.3 MG/DL Total Bilirubin 0.2 MG/DL Direct Bilirubin 0.1 MG/DL Indirect Bilirubin 0.1 MG/DL Aspartate Amino Transf (AST/SGOT) 16 U/L Alanine Aminotransferase (ALT/SGPT) 24 U/L Alkaline Phosphatase 76 U/L Total Protein 5.7 GM/DL Albumin 2.4 GM/DL Date/Time Source Procedure Growth Status 05/23/17 19:10 Genital Genital Region Group B Streptococcus Screen Pending Received Physical Exam GENERAL: Well-nourished, well-developed patient. CARDIOVASCULAR: Regular rate and rhythm without murmurs, gallops, or rubs. RESPIRATORY: Breath sounds equal bilaterally. No accessory muscle use. ABDOMEN/GI: Abdomen soft, non-tender. Fundus: [-] GENITOURINARY: External Genitalia: intact and normal in appearance Cervix: [-] Dilatation: [-] Effacement: [-] Station: [-] Presentation: [-] Membranes: [-] Uterine Contractions: [-] FHT's: Category: [-] Baseline: [-] Reactive: [-] Variability: [-] Decels: [-] EXTREMITIES: No cyanosis or edema, non-tender, without signs of DVT. Assessment and Plan Problem List: (1) Chronic hypertension during , antepartum ICD Codes: O10.919 - Unspecified pre-existing hypertension complicating , unspecified trimester Status: Acute (2) 34 weeks gestation of ICD Codes: Z3A.34 - 34 weeks gestation of Status: Acute (3) Gestational diabetes ICD Codes: O24.419 - Gestational diabetes mellitus in , unspecified control Status: Acute Qualifiers: Qualified Codes: O24.410 - Gestational diabetes mellitus in , diet controlled (4) AMA (advanced maternal age) multigravida 35+ ICD Codes: O09.529 - Supervision of elderly multigravida, unspecified trimester Status: Acute Qualifiers: Qualified Codes: O09.523 - Supervision of elderly multigravida, third trimester Assessment and Plan 37 yo with tompkins male IUP at 34w5d admit overnight for severe range BPs in setting of CHTN 1) CHTN: on aldomet 1000mg bid and labetalol 100mg bid as outpatient, on admission last evening requiring single dose procardia with good result; no severe range BPs overnight, continue to monitor closely for additional medication adjustment as needed - 24h urine started, due to end around 1900 [facility] labs wnl x 2 - asymptomatic at this time, denies ZAMORA, vision changes, RUQ pain, edema - betamethasone ordered, s/p 1/2 doses 2) GDM: very good control with diet; due to administration of betamethasone will hold glucose checks today; has had excellent control as outpatient, pt diligent with diet/nutrition 3) AMA: normal anatomy sono, neg cfDNA and msAFP; has had testing weekly since 28 wks due to CHTN & GDM & AMA; all reassuring 4) GBS unknown: swab performed yesterday in office, pending 5) status: male, vertex; official sono with weight estimate ordered for today; Cat I tracing overnight 6) PPX: SCDs ordered 7) dispo: not meeting criteria, continue to monitor closely at this time Dorothy Singh MD May 24, 2017 07:41
[2017-05-24] MEDS: MULTIVIT/MIN/PREN/FOL AC/IRON PRENATAL TAB PO SCH (08:40)
[2017-05-24] MEDS: METHYLDOPA 500 MG TAB PO SCH ×2 (08:41→20:58)
[2017-05-24] MEDS: LABETALOL HCL 200 MG TAB PO SCH ×3 (08:41→20:58)
--- NOTE | 2017-05-24 13:05 | PD.CONS ---
History of Present Illness Service Consult Consult Requested By Dr. Bowers Reason for Consult 35 weeks gestation mother with chronic hypertension, gestational diabetes Primary Care Physician No Primary Care Physician Diagnoses: (1) Chronic hypertension during , antepartum (2) Gestational diabetes (3) 34 weeks gestation of History of Present Illness Consult Maternal Hx: 37 y/o, G 5 P 1 AB 3 , female at 35 weeks gestation with diagnosis of Chronic Hypertension, Gestational Diabetes and Advance Maternal Age Mother admitted to [facility] on 05/23/13, secondary to elevated blood pressure. Most recent Ultrasound on 05/21/17 confirms intrauterine . EDC of 06/27/17 Estimated weight is 2480 grams. Maternal risk factors/complications: 35 weeks gestation , chronic hypertension, gestational diabetes and advanced maternal age. Maternal Labs: Blood type pending, Rubella Immune, RPR NR, GC neg Chlamydia neg, Hepatitis B neg, HIV neg GBS pending done on 05/23/17, Maternal Medications: PNV, Labetol, Aldomet Betamethasone 05/20/17 & 05/21/17 Social: Marital status: Resides locally Family Hx: Mother reports no genetic or inherited conditions. Reports other child born at 36weeks gestation at [facility] Substance Abuse: Denies Discussion: Nurse Practitioner met with mother regarding threatened delivery at 35- 36 weeks gestation secondary to hypertension. This consultation included generalized care of the baby in the NICU, common problems, complications and survival and/or disability potential if delivered at this time. Mother was provided informational regarding the development of their baby currently, an introduction to the NICU, and what to expect at the delivery. Mother agreed that they would review the information as soon as possible. The DIESEL ENGINE ERECTOR discussed and reviewed the expectations with delivery of an under these circumstances including delivery room atmosphere, resuscitation and stabilization. Additionally, there was a discussion of the disease processes that may affect an of this gestation, including but not limited to respiratory distress, infection and nutritional concerns. There was a review of nutritional support challenges including IV and gavage feeding. There was discussion regarding of possible feeding difficulties. Mother wants to breast feed but will allow use of formula until breast milk is established. She is open to the use of bottles and gavage pending infants status. Explained that infant is at risk for hyperbilirubinemia and may require treatment with phototherapy. Support systems in place at [facility] were reviewed and included , Case Management and Ministry which the family may utilize. Expected discharge would likely occur closer to the due date if the infant has an uncomplicated hospitalization. Consultation time 40 minutes and spend greater than 50% of the consultation time was spent with the patient. CAROLYN Frias 05/24/17 Nurse practitioner Date Past Family Social History Allergies: Coded Allergies: No Known Allergies (Unverified , 01/13/15) Physical Exam Vital Signs Vital Signs Date Time Temp Pulse Resp B/P (MAP) Pulse Ox O2 Delivery O2 Flow Rate FiO2 05/24/17 12:00 20 05/24/17 11:18 88 136/76 (96) 05/24/17 08:00 94.7 20 05/24/17 07:51 79 133/82 (99) 05/24/17 06:01 75 132/78 (96) 05/24/17 01:17 18 05/24/17 01:17 97.7 05/24/17 01:17 76 130/70 (90) 05/23/17 23:29 79 141/78 (99) 05/23/17 21:45 98.2 18 05/23/17 21:36 79 148/87 (107) 05/23/17 21:06 81 168/97 (120) 05/23/17 20:00 18 05/23/17 18:49 79 156/98 (117) 05/23/17 18:37 80 05/23/17 16:59 80 151/94 (113) 05/23/17 16:26 81 153/91 (111) 05/23/17 15:43 81 164/101 (122) 05/23/17 15:29 73 168/102 (124) 05/23/17 15:27 75 171/102 (125) Physical Exam GENERAL: This is a well-nourished, well-developed patient, in no apparent distress. SKIN: No rashes, ecchymoses or lesions. Cool and dry. HEAD: Atraumatic. Normocephalic. No temporal or scalp tenderness. EYES: Pupils equal round and reactive. Extraocular motions intact. No scleral icterus. No injection or drainage. ENT: Nose without bleeding, purulent drainage or septal hematoma. Throat without erythema, tonsillar hypertrophy or exudate. Uvula midline. Airway patent. NECK: Trachea midline. No JVD or lymphadenopathy. Supple, nontender, no meningeal signs. CARDIOVASCULAR: Regular rate and rhythm without murmurs, gallops, or rubs. RESPIRATORY: Clear to auscultation. Breath sounds equal bilaterally. No wheezes , rales, or rhonchi. GASTROINTESTINAL: Abdomen soft, non-tender, nondistended. No hepato-splenomegaly , or palpable masses. No guarding. MUSCULOSKELETAL: Extremities without clubbing, cyanosis, or edema. No joint tenderness, effusion, or edema noted. No calf tenderness. Negative Homans sign bilaterally. NEUROLOGICAL: Awake and alert. Cranial nerves II through XII intact. Motor and sensory grossly within normal limits. Five out of 5 muscle strength in all muscle groups. Normal speech. Laboratory Laboratory Tests Test 05/23/17 19:10 05/24/17 05:33 Group B Streptococcus (PCR) NEGATIVE White Blood Count 9.5 Red Blood Count 4.01 Hemoglobin 11.3 Hematocrit 33.5 Mean Corpuscular Volume 83.5 Mean Corpuscular Hemoglobin 28.1 Mean Corpuscular Hemoglobin Concent 33.7 Red Cell Distribution Width 13.8 Platelet Count 181 Mean Platelet Volume 10.3 Uric Acid 4.3 Total Bilirubin 0.2 Direct Bilirubin 0.1 Indirect Bilirubin 0.1 Aspartate Amino Transf (AST/SGOT) 16 Alanine Aminotransferase (ALT/SGPT) 24 Alkaline Phosphatase 76 Total Protein 5.7 Albumin 2.4 Date/Time Source Procedure Growth Status 05/23/17 19:10 Genital Genital Region Group B Streptococcus Screen Pending Received Result Diagram: 05/24/17 0533 05/22/17 0555 Problem Qualifiers (1) Gestational diabetes: Qualified Codes: O24.410 - Gestational diabetes mellitus in , diet controlled Renetta Gama May 24, 2017 13:05
[2017-05-24] MEDS: ZOLPIDEM TARTRATE 5 MG TAB PO PRN (23:34)
[2017-05-25] VITALS (46 sets, daily range): BP systolic 132–213; BP diastolic 70–150; PULSE 74–94; RESP 18–20; TEMP 97.6–98.4; O2SAT 95–98
[2017-05-25 07:26] LABS: URINE TOTAL PROTEIN TIMED 64.2 MG/DL
--- NOTE | 2017-05-25 08:06 | PD.OB.ANTE ---
Subjective Diagnosis: (1) Chronic hypertension during , antepartum Diagnosis: Principal (2) 35 weeks gestation of Diagnosis: Principal (3) Gestational diabetes Diagnosis: Secondary (4) AMA (advanced maternal age) multigravida 35+ Diagnosis: Secondary Interval History No symptoms overnight. Denies headache, vision changes, RUQ pain, edema, or nausea. Irregular contractions, did have some "bloody show" after wiping this AM. Pain 0/10 currently. Antepartum ROS: Reports: movement normal, Denies: New complaints, Loss of fluid, Vaginal bleeding, Contractions, Other Objective Vital Signs Vital Signs Date Time Temp Pulse Resp B/P (MAP) Pulse Ox O2 Delivery O2 Flow Rate FiO2 05/25/17 06:17 97.9 05/25/17 06:17 18 05/25/17 06:01 74 154/76 (102) 05/25/17 06:00 154/76 (102) 05/25/17 06:00 97.9 74 18 05/25/17 00:00 18 05/24/17 23:41 79 160/87 (111) 05/24/17 21:25 18 05/24/17 21:19 78 124/83 (97) 05/24/17 19:21 97.9 18 05/24/17 19:20 70 153/86 (108) 05/24/17 18:05 20 05/24/17 18:04 71 142/79 (100) 05/24/17 16:00 82 156/88 (110) 05/24/17 16:00 99.0 20 05/24/17 12:00 20 05/24/17 11:18 88 136/76 (96) 05/24/17 08:00 94.7 20 Lab & Micro Results Test 05/25/17 06:15 Urine Total Volume 24 Hours 3050 ML Urine Total Protein 24 Hour 1958 MG/24HR Date/Time Source Procedure Growth Status 05/23/17 19:10 Genital Genital Region Group B Streptococcus Screen Pending Received Physical Exam GENERAL: Well-nourished, well-developed patient. CARDIOVASCULAR: Regular rate and rhythm without murmurs, gallops, or rubs. RESPIRATORY: Breath sounds equal bilaterally. No accessory muscle use. ABDOMEN/GI: Abdomen soft, non-tender. Fundus: c/w dates GENITOURINARY: External Genitalia: intact and normal in appearance Cervix: [posterior, soft] Dilatation: [5] Effacement: [50] Station: [-2] Presentation: [vtx] Membranes: [intact] Uterine Contractions: [irregular] FHT's: Category: [I] Baseline: [130s] Reactive: [y] Variability: [y] Decels: [n] EXTREMITIES: No cyanosis or edema, non-tender, without signs of DVT. Assessment and Plan Problem List: (1) Chronic hypertension during , antepartum ICD Codes: O10.919 - Unspecified pre-existing hypertension complicating , unspecified trimester Status: Acute (2) 34 weeks gestation of ICD Codes: Z3A.34 - 34 weeks gestation of Status: Acute (3) Gestational diabetes ICD Codes: O24.419 - Gestational diabetes mellitus in , unspecified control Status: Acute Qualifiers: Qualified Codes: O24.410 - Gestational diabetes mellitus in , diet controlled (4) AMA (advanced maternal age) multigravida 35+ ICD Codes: O09.529 - Supervision of elderly multigravida, unspecified trimester Status: Acute Qualifiers: Qualified Codes: O09.523 - Supervision of elderly multigravida, third trimester Assessment and Plan 37 yo with tompkins male IUP at 35w2d admit 05/20/17 for severe range BPs in setting of CHTN 1) CHTN: on admit was taking aldomet 1000mg bid and labetalol 100mg bid as outpatient, on admission required procardia with good result; over weekend required escalation of oral labetalol, now on 400mg tid; in past 24h no severe range pressures; remains asymptomatic, continue to monitor closely, at this point d/w pt if any severe range BPs will induce; very favorable, SVE 5/50/-2 this AM, asymptomatic, posterior soft cervix - 24h urine done x 2 thus far while inpt; increased from 794mg on 05/21/17 to 1958mg on 05/24/17 - PI[facility] labs wnl x 3; ordered again today due to new advanced cervical dilation - asymptomatic at this time, denies ZAMORA, vision changes, RUQ pain, edema - s/p 2/2 doses betamethasone on admission, s/p NICU consult 2) GDM: very good control with diet; accuchecks wnl; continue to monitor 3) AMA: normal anatomy sono, neg cfDNA and msAFP; has had testing weekly since 28 wks due to CHTN & GDM & AMA as outpt; all reassuring; 04/20 BPP on 05/21/17; for repeat testing today 4) GBS negative 5) status: male, vertex; EFW 2480g (5#7oz) on 05/21/17; Cat I tracing currently 6) PPX: SCDs ordered 7) dispo: not meeting criteria, continue to monitor closely at this time, anticipate need for induction/delivery within next few days Jo Bowers MD May 25, 2017 08:06
[2017-05-25] MEDS: LABETALOL HCL 200 MG TAB PO SCH ×3 (08:52→20:35)
[2017-05-25] MEDS: METHYLDOPA 500 MG TAB PO SCH ×2 (08:53→20:32)
[2017-05-25] MEDS: MULTIVIT/MIN/PREN/FOL AC/IRON PRENATAL TAB PO SCH (08:53)
[2017-05-25] MEDS: LACTATED RINGER'S 1000 ML INJ 1,000 ML IV SCH ×2 (11:00→20:13)
[2017-05-25 12:19] LABS: HEMATOCRIT 34.9 % (35.0-46.0); MEAN CELL VOLUME 83.7 FL (80.0-100.0); MEAN CORPUSCULAR HEMOGLOBIN 27.9 PG (27.0-34.0); MEAN CORPUSCULAR HGB CONC 33.3 % (32.0-36.0); PLATELET COUNT 174 TH/MM3 (150-450); RED BLOOD COUNT 4.17 MIL/MM3 (4.00-5.30); RED CELL DISTRIBUTION WIDTH 14.3 % (11.6-17.2); REVIEW FLAG FINAL
[2017-05-25 12:50] LABS: ANION GAP 13 MEQ/L (5-15); AST (GOT) 18 U/L (15-37); BICARBONATE 20.3 MEQ/L (21.0-32.0); BLOOD UREA NITROGEN 14 MG/DL (7-18); CHLORIDE 105 MEQ/L (98-107); GLOMERULAR FILTRATION RATE 99 ML/MIN (>89); POTASSIUM 3.7 MEQ/L (3.5-5.1); SODIUM (NA) 138 MEQ/L (136-145)
[2017-05-25 12:52] LABS: ALT (GPT) 25 U/L (10-53)
[2017-05-25 12:55] LABS: ALKALINE PHOSPHATASE 84 U/L (45-117); TOTAL BILIRUBIN ADULT 0.2 MG/DL (0.2-1.0)
[2017-05-25] MEDS: SODIUM CHLORIDE 0.9% FLUSH 10 ML FLUSH IV FLUSH SCH ×2 (16:15→16:16)
[2017-05-25] MEDS ORDERED: SODIUM CHLORIDE FLUSH PRN IV FLUSH (20:00)
[2017-05-25] MEDS ORDERED: fentaNYL 2MCG-BUPIV 0.125% INJ 100 ML ONE (20:59)
[2017-05-25] MEDS ORDERED: SODIUM CHLORIDE FLUSH BID IV FLUSH SCH (21:00)
[2017-05-25] MEDS ORDERED: MAGNESIUM SULFATE 40 GM PREMIX 1,000 ML ONE (21:02)
[2017-05-25] MEDS ORDERED: OXYTOCIN 30 UNITS-500ML PREMIX 500 ML ONE (21:02)
[2017-05-25] MEDS ORDERED: DO NOT ADMINISTER ANTICOAGULANTS PRN (22:00)
[2017-05-25] MEDS ORDERED: MAGNESIUM SULFATE 40 GM PREMIX 1,000 ML IV SCH ×2 (22:00)
[2017-05-25] MEDS ORDERED: LIDOCAINE HCL 1% 50 ML VIAL I-DERMAL PRN (22:00)
[2017-05-25] MEDS ORDERED: NS 500 ML BOLUS IV PRN (22:00)
[2017-05-25] MEDS ORDERED: CITRIC ACID-SODIUM CITRATE LIQ 30 ML UDC PO SCH (22:00)
[2017-05-25] MEDS ORDERED: ONDANSETRON HCL 4 MG/2 ML VIAL IV PUSH PRN ×2 (22:00)
[2017-05-25] MEDS ORDERED: fentaNYL 2MCG-BUPIV 0.125% 100 ML EPIDURAL SCH (22:00)
[2017-05-25] MEDS ORDERED: NO SYSTEM NARCOTICS PRN (22:00)
[2017-05-25] MEDS ORDERED: LACTATED RINGER'S 1000 ML BOLUS IV PRN (22:00)
[2017-05-25] MEDS ORDERED: NS 1000 ML IV PRN (22:00)
[2017-05-25] MEDS ORDERED: ePHEDrine/NS 25 MG/5 ML SYR IV PUSH PRN (22:00)
[2017-05-25] MEDS ORDERED: OXYTOCIN 30 UNITS 500ML PREMIX IV ONE (22:00)
[2017-05-25] MEDS ORDERED: CALCIUM GLUCONATE 10% 1 GM/10 ML VIAL IV PUSH PRN (22:00)
[2017-05-25] MEDS ORDERED: LIDOCAINE HCL 1% 50 ML VIAL INFIL PRN (22:00)
[2017-05-25] MEDS ORDERED: MINERAL OIL 10 ML VIAL TOPICAL PRN (22:00)
[2017-05-25] MEDS: LACTATED RINGER'S 1000 ML IV SCH (22:00)
[2017-05-25 22:45] LABS: BLOOD GAS BASE EXCESS -1.7 mmol/L (-2-2); BLOOD GAS O2 HGB SATURATION 15 % (90-100); CORD BLOOD GAS HCO3 25 mmol/L (21-29); CORD BLOOD GAS PCO2 66 mmHG (34-78); CORD BLOOD GAS PH 7.21 (7.14-7.42); CORD BLOOD GAS PO2 14 mmHG (3.0-40.0); DRAW SITE CORD BLOOD; STAT NO
--- NOTE | 2017-05-25 22:54 | PD.OB.DELI ---
Weeks gestation: 35 Gest age assessed date: May 25, 2017 Gest age assessed time: 18:30 Pt started active labor?: Yes Active labor start date: May 25, 2017 Active labor start time: 18:30 Medical induction of labor?: No Artificial rupture of membrane: No Anesthesia: Epidural Episiotomy: None Vaginal Delivery: Normal Presentation: Occiput anterior Nuchal Cord: x2 Delayed cord clamping (45 sec): No (cord clamping was delayed until 39 seconds , however due to tone the cord was clamped 39 seconds as per request of the NICU team) : Male Delivery date: May 25, 2017 Delivery time: 22:33 One Minute : 7 Five Minute : 9 Weight: 2395g Placenta: Spontaneous delivery, 3 vessel cord, Cord pH, Other (appeared to be possible small partial abruption, placenta sent for pathologic evaluation) Laceration: No lacerations Estimated blood loss: 200 cc Additional Information The patient is a the patient was admitted to antepartum and subsequently entered active labor. I presented to the room after noting bradycardia with heart rate in the 60s. The patient already been repositioned and the scalp lead was in the process of being placed. We tried additional repositioning including knee-chest position without success. Of note the patient had dilated rapidly from 6 cm to completely dilated. I discussed with the patient the need to not await the arrival of her attending due to the bradycardia, so we commenced maternal expulsive efforts. The patient delivered after expulsive efforts with 3 contractions with the heart rate in the range of 60s to 120s with a total time of 14 minutes from initial onset until delivery. With the third contraction, the head was expelled atraumatically with some dark-appearing blood and a double nuchal cord noted that was reduced over the head. Anterior shoulder and remainder of the delivered atraumatically the was placed on the maternal abdomen and after some gentle stimulation was crying vigorously. The note and mouth were suctioned with bulb suction. The cord was clamped at 39 seconds on recommendation of the team due to decreased tone. The cord was doubly clamped and cut and the taken to the warmer. Apgars were 7 and 9. Cord pH was obtained with cord pH 7.21. Cord blood was obtained for the nursery Placenta delivered spontaneously and appeared to be intact however area of the placenta noted to have a possible adherent clot, approximately 10-15% of the placental surface. The placenta was sent for pathological evaluation. No lacerations were noted. EBL 200 cc. The was transferred to the NICU. The mother is stable and was appreciative for my presence. Chely Tillman MD May 25, 2017 22:54
[2017-05-25] MEDS: ACETAMINOPHEN 325 MG TAB PO PRN (23:12)
[2017-05-26] VITALS (16 sets, daily range): BP systolic 123–166; BP diastolic 79–108; PULSE 77–96; RESP 16–20; TEMP 97.6–98.3
[2017-05-26] MEDS ORDERED: ALUMINUM/MAGNESIUM/SIMETH 30 ML CUP PO PRN (00:45)
[2017-05-26] MEDS ORDERED: SODIUM CHLORIDE 0.9% FLUSH 10 ML FLUSH IV FLUSH PRN (00:45)
[2017-05-26] MEDS ORDERED: WITCH HAZEL 50%/GLYCERIN 12.5% 40 PAD JAR TOPICAL PRN (00:45)
[2017-05-26] MEDS ORDERED: OXYTOCIN 30 UNITS-500ML PREMIX 500 ML IV SCH (00:45)
[2017-05-26] MEDS ORDERED: oxyCODONE/ACETAMINOPHEN 5 MG/325 MG TAB PO PRN ×2 (00:45)
[2017-05-26] MEDS ORDERED: BENZOCAINE 20% TOPICAL SPRAY 60 ML CAN TOPICAL PRN (00:45)
[2017-05-26] MEDS ORDERED: LIDOCAINE 2% JELLY 30 ML TUBE TOPICAL PRN (01:45)
[2017-05-26 06:00] LABS: HEMATOCRIT 33.4 % (35.0-46.0); MEAN CELL VOLUME 83.9 FL (80.0-100.0); MEAN CORPUSCULAR HEMOGLOBIN 27.7 PG (27.0-34.0); PLATELET COUNT 177 TH/MM3 (150-450); RED BLOOD COUNT 3.98 MIL/MM3 (4.00-5.30); RED CELL DISTRIBUTION WIDTH 14.3 % (11.6-17.2); REVIEW FLAG FINAL; WHITE BLOOD COUNT 12.9 TH/MM3 (4.0-11.0)
[2017-05-26] MEDS: LACTATED RINGER'S 1000 ML IV SCH ×4 (06:00→19:25)
[2017-05-26 06:29] LABS: ANION GAP 10 MEQ/L (5-15); BICARBONATE 20.7 MEQ/L (21.0-32.0); BLOOD UREA NITROGEN 12 MG/DL (7-18); CHLORIDE 107 MEQ/L (98-107); GLOMERULAR FILTRATION RATE 119 ML/MIN (>89); POTASSIUM 3.9 MEQ/L (3.5-5.1); SODIUM (NA) 138 MEQ/L (136-145); URIC ACID 4.6 MG/DL (2.6-6.0)
[2017-05-26 06:30] LABS: ALT (GPT) 24 U/L (10-53); AST (GOT) 22 U/L (15-37)
[2017-05-26 06:32] LABS: ALKALINE PHOSPHATASE 78 U/L (45-117); TOTAL BILIRUBIN ADULT 0.2 MG/DL (0.2-1.0)
--- NOTE | 2017-05-26 07:32 | HHI.OB ---
Subjective Post Day: 1 Remarks s/p precipitous delivery at 35w2d, was admitted for severe blood pressures in setting of chronic hypertension since 05/20/17 doing well this morning, on IV magnesium sulfate therapy currently Objective Vitals/I&O Vital Signs Date Time Temp Pulse Resp B/P (MAP) Pulse Ox O2 Delivery O2 Flow Rate FiO2 05/26/17 05:30 16 05/26/17 05:19 89 150/95 (113) 05/26/17 04:00 18 05/26/17 03:54 96 133/80 (97) 05/26/17 01:30 97.8 05/26/17 01:28 81 152/95 (114) 05/26/17 01:28 18 05/25/17 23:52 97.6 05/25/17 23:22 79 153/93 (113) 05/25/17 23:15 18 05/25/17 23:01 83 147/91 (109) 05/25/17 22:55 18 05/25/17 22:45 18 05/25/17 22:45 89 146/129 (135) 05/25/17 22:24 94 97 05/25/17 22:23 87 164/89 (114) 05/25/17 22:19 79 97 05/25/17 22:15 81 142/88 (106) 05/25/17 22:14 81 97 05/25/17 22:09 80 97 05/25/17 22:04 75 95 05/25/17 22:01 77 132/70 (90) 05/25/17 21:59 81 95 05/25/17 21:54 81 96 05/25/17 21:49 83 97 05/25/17 21:45 79 155/84 (107) 05/25/17 21:44 96 05/25/17 21:44 81 05/25/17 21:40 80 05/25/17 21:40 148/84 (105) 05/25/17 21:39 96 05/25/17 21:39 83 05/25/17 21:34 80 05/25/17 21:34 95 05/25/17 21:31 79 181/103 (129) 05/25/17 21:29 80 05/25/17 21:29 97 05/25/17 21:25 85 171/105 (127) 05/25/17 21:24 83 05/25/17 21:24 96 05/25/17 21:19 98 05/25/17 21:19 82 05/25/17 21:14 98 05/25/17 21:14 81 05/25/17 21:11 79 200/116 (144) 05/25/17 21:09 88 05/25/17 21:09 98 05/25/17 21:08 86 213/150 (171) 05/25/17 20:38 90 199/109 (139) 05/25/17 20:15 79 166/95 (118) 05/25/17 20:12 97.9 05/25/17 19:01 78 152/85 (107) 05/25/17 18:04 74 166/92 (116) 05/25/17 17:00 98.4 20 05/25/17 16:17 85 138/86 (103) 05/25/17 13:00 18 05/25/17 12:25 78 154/97 (116) 05/25/17 07:58 98.4 20 05/25/17 07:57 88 132/89 (103) Objective Remarks GENERAL: Well-nourished, well-developed patient. CARDIOVASCULAR: Regular rate and rhythm without murmurs, gallops, or rubs. RESPIRATORY: Breath sounds equal bilaterally. No accessory muscle use. ABDOMEN/GI: Abdomen soft, non-tender. Fundus: Firm, non-tender at umbilicus. GENITOURINARY: Light to moderate bleeding. EXTREMITIES: No cyanosis or edema, non-tender, without signs of DVT. Medications and IVs Current Medications Medications (Trade) Dose Ordered Sig/Robinson Route Start Time Stop Time Status Last Admin (Tylenol) 650 mg Q4H PRN PO 05/20/17 19:15 05/25/17 23:12 (Zofran Inj) 4 mg Q6H PRN IV PUSH 05/20/17 19:15 (Colace) 100 mg BID PRN PO 05/20/17 19:15 05/25/17 08:55 (Stuartnatal Plus 3 ) 1 tab DAILY PO 05/21/17 09:00 05/25/17 08:53 (Ambien) 5 mg HS PRN PO 05/20/17 19:15 05/24/17 23:34 (D50w (Vial) Inj) 50 ml UNSCH PRN IV PUSH 05/20/17 19:15 (Glucagon Inj) 1 mg STAT PRN IM 05/20/17 19:15 (Aldomet) 1,000 mg BID PO 05/20/17 20:00 05/25/17 20:32 (Pepcid) 20 mg Q12H PRN PO 05/21/17 14:30 05/23/17 21:07 (Trandate) 400 mg TID@0900,1500,2100 PO 05/24/17 21:00 05/25/17 20:35 Magnesium Sulfate 1,000 ml @ 50 mls/hr Q20H IV 05/25/17 22:00 05/25/17 21:06 Lactated Ringer's 1,000 ml @ 75 mls/hr C14C23H IV 05/25/17 22:00 05/25/17 20:13 (Calcium Gluconate Inj) 1 gm ONCE PRN IV PUSH 05/25/17 22:00 06/01/17 21:59 Lactated Ringer's 1,000 ml @ 125 mls/hr Q8H IV 05/25/17 22:00 Lactated Ringer's 1,000 ml @ 3,000 mls/hr BOLUS PRN IV 05/25/17 22:00 Sodium Chloride 500 ml @ 1,000 mls/hr BOLUS PRN IV 05/25/17 22:00 Sodium Chloride 1,000 ml @ 100 mls/hr Q10H PRN IV 05/25/17 22:00 (Bicitra Liq) 30 ml WAD COMPRESSOR OPERATOR ADJUSTER PO 05/25/17 22:00 05/28/17 21:59 Miscellaneous Information No systemic narcotics to be given except... UNSCH PRN .XX 05/25/17 22:00 05/26/17 21:59 Miscellaneous Information DO NOT ADMINISTER ANY ANTICOAGUL... UNSCH PRN .XX 05/25/17 22:00 05/26/17 21:59 (ePHEDrine/NS 25 MG/5 ML SYR) 10 mg UNSCH PRN IV PUSH 05/25/17 22:00 05/26/17 21:59 (Motrin) 600 mg Q6H PRN PO 05/25/17 23:45 (NS Flush) 2 ml BID IV FLUSH 05/26/17 09:00 (NS Flush) 2 ml UNSCH PRN IV FLUSH 05/26/17 00:45 (Percocet 5-325 Mg) 1 tab Q4H PRN PO 05/26/17 00:45 (Percocet 5-325 Mg) 2 tab Q4H PRN PO 05/26/17 00:45 (Americaine 20% Top Spr) 1 spray Q4H PRN TOPICAL 05/26/17 00:45 (Tucks Pads) 1 applic QID PRN TOPICAL 05/26/17 00:45 (Rachel-Colace) 2 tab Q12H PRN PO 05/26/17 00:45 (M-M-R Ii Inj) 0.5 ml ONCE ONCE SQ 05/26/17 16:00 05/26/17 16:01 (Boostrix Inj) 0.5 ml ONCE ONCE IM 05/26/17 16:00 05/26/17 16:01 (Mag-Al Plus Susp Liq) 15 ml Q8H PRN PO 05/26/17 00:45 (Xylocaine 2% Jelly) 1 applic ONCE PRN TOPICAL 05/26/17 01:45 05/26/17 23:59 Assessment/Plan Problem List: (1) Chronic hypertension during , antepartum ICD Codes: O10.919 - Unspecified pre-existing hypertension complicating , unspecified trimester Status: Acute (2) 35 weeks gestation of ICD Codes: Z3A.35 - 35 weeks gestation of (3) Gestational diabetes ICD Codes: O24.419 - Gestational diabetes mellitus in , unspecified control Status: Acute Qualifiers: Qualified Codes: O24.410 - Gestational diabetes mellitus in , diet controlled (4) AMA (advanced maternal age) multigravida 35+ ICD Codes: O09.529 - Supervision of elderly multigravida, unspecified trimester Status: Acute Qualifiers: Qualified Codes: O09.523 - Supervision of elderly multigravida, third trimester Assessment and Plan 37 yo s/p precipitous delivery at 35w2d, was admitted for severe blood pressures in setting of chronic hypertension since 05/20/17 on magnesium sulfate, plan 12h of therapy as all PIH labs have been wnl and pt has baseline proteinuria; unclear if true JEFF or just worsening CHTN; good UOP , normal exam, normal reflexes infant in NICU for prematurity has breastpump at bedside not meeting d/c criteria, suspect will take a few days to adjust BP medication once magnesium sulfate off Discharge Planning not meeting criteria Jo Bowers MD May 26, 2017 07:32
[2017-05-26] MEDS: IBUPROFEN 600 MG TAB PO PRN (08:08)
[2017-05-26] MEDS: MULTIVIT/MIN/PREN/FOL AC/IRON PRENATAL TAB PO SCH (08:52)
[2017-05-26] MEDS: LABETALOL HCL 200 MG TAB PO SCH ×3 (08:52→20:21)
[2017-05-26] MEDS: METHYLDOPA 500 MG TAB PO SCH ×2 (08:52→20:21)
[2017-05-26] MEDS: SODIUM CHLORIDE 0.9% FLUSH 10 ML FLUSH IV FLUSH SCH ×2 (09:00→19:24)
[2017-05-26] MEDS ORDERED: NIFEdipine 10 MG CAP ONE (09:09)
[2017-05-26] MEDS ORDERED: NIFEdipine 10 MG CAP PO ONE (09:15)
[2017-05-26] MEDS: LACTATED RINGER'S 1000 ML INJ 1,000 ML IV SCH ×2 (11:20→19:25)
[2017-05-26] MEDS ORDERED: MEASLES, MUMPS, RUBELLA VACCINE 0.5 ML VIAL SQ ONE (16:00)
[2017-05-26] MEDS ORDERED: DIPHTH/TETANUS/ACEL PERTUSSIS (BOOSTER) 0.5 ML VIAL/PFS IM ONE (16:00)
[2017-05-27] VITALS (12 sets, daily range): BP systolic 123–180; BP diastolic 82–103; PULSE 80–91; RESP 16–20; TEMP 97.9–98.4
[2017-05-27] MEDS: ZOLPIDEM TARTRATE 5 MG TAB PO PRN ×2 (00:17→23:49)
[2017-05-27] MEDS: DOCUSATE SODIUM 50 MG/SENNA 8.6 MG TAB PO PRN (00:17)
--- NOTE | 2017-05-27 06:06 | HHI.OB ---
Subjective Post Day: 2 Remarks s/p precipitous delivery while admitted for control of severe exacerbation of CHTN; male infant 35w2d in NICU for prematurity Objective Vitals/I&O Vital Signs Date Time Temp Pulse Resp B/P (MAP) Pulse Ox O2 Delivery O2 Flow Rate FiO2 05/27/17 05:55 16 05/27/17 00:30 97.9 18 05/27/17 00:30 84 123/87 (99) 05/26/17 20:15 98.3 18 05/26/17 20:15 85 144/88 (106) 05/26/17 16:40 134/86 (102) 05/26/17 15:55 97.9 20 05/26/17 15:44 86 147/95 (112) 05/26/17 11:28 18 05/26/17 11:27 93 123/79 (94) 05/26/17 09:34 77 143/91 (108) 05/26/17 08:57 77 166/108 (127) 05/26/17 08:57 18 05/26/17 08:08 97.6 18 05/26/17 08:04 86 166/107 (126) Objective Remarks GENERAL: Well-nourished, well-developed patient. Resting. CARDIOVASCULAR: Regular rate and rhythm without murmurs, gallops, or rubs. RESPIRATORY: Breath sounds equal bilaterally. No accessory muscle use. ABDOMEN/GI: Abdomen soft, non-tender. Fundus: Firm, non-tender at umbilicus. GENITOURINARY: Light bleeding. EXTREMITIES: No cyanosis or edema, non-tender, without signs of DVT. Medications and IVs Current Medications Medications (Trade) Dose Ordered Sig/Robinson Route Start Time Stop Time Status Last Admin (Tylenol) 650 mg Q4H PRN PO 05/20/17 19:15 05/25/17 23:12 (Zofran Inj) 4 mg Q6H PRN IV PUSH 05/20/17 19:15 (Stuartnatal Plus 3 ) 1 tab DAILY PO 05/21/17 09:00 05/26/17 08:52 (Ambien) 5 mg HS PRN PO 05/20/17 19:15 05/27/17 00:17 (D50w (Vial) Inj) 50 ml UNSCH PRN IV PUSH 11/9/17 19:15 (Glucagon Inj) 1 mg STAT PRN IM 05/20/17 19:15 (Aldomet) 1,000 mg BID PO 05/20/17 20:00 05/26/17 20:21 (Pepcid) 20 mg Q12H PRN PO 05/21/17 14:30 05/23/17 21:07 (Trandate) 400 mg TID@0900,1500,2100 PO 05/24/17 21:00 05/26/17 20:21 Lactated Ringer's 1,000 ml @ 75 mls/hr [id number] IV 05/25/17 22:00 05/25/17 20:13 (Calcium Gluconate Inj) 1 gm ONCE PRN IV PUSH 05/25/17 22:00 06/01/17 21:59 Lactated Ringer's 1,000 ml @ 125 mls/hr Q8H IV 05/25/17 22:00 Lactated Ringer's 1,000 ml @ 3,000 mls/hr BOLUS PRN IV 05/25/17 22:00 Sodium Chloride 500 ml @ 1,000 mls/hr BOLUS PRN IV 05/25/17 22:00 Sodium Chloride 1,000 ml @ 100 mls/hr Q10H PRN IV 05/25/17 22:00 (Bicitra Liq) 30 ml DRAFTING LAYOUT WORKER PO 05/25/17 22:00 05/28/17 21:59 (Motrin) 600 mg Q6H PRN PO 05/25/17 23:45 05/26/17 08:08 (NS Flush) 2 ml BID IV FLUSH 05/26/17 09:00 (NS Flush) 2 ml UNSCH PRN IV FLUSH 05/26/17 00:45 (Percocet 5-325 Mg) 1 tab Q4H PRN PO 05/26/17 00:45 (Percocet 5-325 Mg) 2 tab Q4H PRN PO 05/26/17 00:45 (Americaine 20% Top Spr) 1 spray Q4H PRN TOPICAL 05/26/17 00:45 (Tucks Pads) 1 applic QID PRN TOPICAL 05/26/17 00:45 (Rachel-Colace) 2 tab Q12H PRN PO 05/26/17 00:45 05/27/17 00:17 (Mag-Al Plus Susp Liq) 15 ml Q8H PRN PO 05/26/17 00:45 Assessment/Plan Problem List: (1) Chronic hypertension during , antepartum ICD Codes: O10.919 - Unspecified pre-existing hypertension complicating , unspecified trimester Status: Acute (2) 35 weeks gestation of ICD Codes: Z3A.35 - 35 weeks gestation of Status: Acute (3) Gestational diabetes ICD Codes: O24.419 - Gestational diabetes mellitus in , unspecified control Status: Acute Qualifiers: Qualified Codes: O24.410 - Gestational diabetes mellitus in , diet controlled (4) AMA (advanced maternal age) multigravida 35+ ICD Codes: O09.529 - Supervision of elderly multigravida, unspecified trimester Status: Acute Qualifiers: Qualified Codes: O09.523 - Supervision of elderly multigravida, third trimester Assessment and Plan 37 yo s/p precipitous delivery on 05/25/17 at 35w2d, was admitted for severe blood pressures in setting of chronic hypertension since 05/20/17 1) CHTN with severe exacerbation & proteinuria: oral meds escalated on admission from aldomet 1000mg bid and labetalol 100mg bid to aldomet 1000mg bid and labetalol 400mg tid - s/p IV magnesium sulfate therapy, ended yesterday; did require 1 dose of procardia yesterday for severe pressures - overnight pressures normalizing, suspect will need to decrease oral therapy; will go slow to avoid rebound; at this time will decrease to 300mg tid; continue to monitor closely - normal PIH labs, asymptomatic at this time 2) GDM: was well controlled with diet during , no need for continued BS monitoring at this time, will f/u PP w 2h gluocola 3) AMA 4) infant status: in NICU for prematurity but doing well, breathing on own & starting to take oral supplement yesterday 5) dispo: not meeting criteria, BP not yet ideally managed; anticipate d/c in next 1-2 days Discharge Planning not meeting criteria Jo Bowers MD May 27, 2017 06:06
[2017-05-27] MEDS: LABETALOL HCL 200 MG TAB PO SCH ×3 (09:04→22:05)
[2017-05-27] MEDS: MULTIVIT/MIN/PREN/FOL AC/IRON PRENATAL TAB PO SCH (09:04)
[2017-05-27] MEDS: METHYLDOPA 500 MG TAB PO SCH ×2 (09:04→22:05)
[2017-05-27] MEDS: LACTATED RINGER'S 1000 ML IV SCH ×3 (14:00→23:18)
[2017-05-27] MEDS: LACTATED RINGER'S 1000 ML INJ 1,000 ML IV SCH ×2 (14:00→21:35)
[2017-05-27] MEDS ORDERED: PILL SPLITTER OTHER PRN (15:15)
[2017-05-27] MEDS: SODIUM CHLORIDE 0.9% FLUSH 10 ML FLUSH IV FLUSH SCH (21:00)
[2017-05-27] MEDS: IBUPROFEN 600 MG TAB PO PRN (22:05)
[2017-05-27] MEDS: ACETAMINOPHEN 325 MG TAB PO PRN (22:05)
[2017-05-27] MEDS ORDERED: NIFEdipine 10 MG CAP PO ONE (23:30)
[2017-05-28] VITALS (10 sets, daily range): BP systolic 117–179; BP diastolic 75–96; PULSE 80–90; RESP 16–20; TEMP 97.6–98.1; O2SAT 98–99
--- NOTE | 2017-05-28 06:44 | HHI.OB ---
Subjective Post Day: 3 Remarks doing well, had some increased pain in her breast and abdomen when breast feeding, VB < cycles, denies ZAMORA or vision change, TPO no n/v, voiding, Objective Vitals/I&O Vital Signs Date Time Temp Pulse Resp B/P (MAP) Pulse Ox O2 Delivery O2 Flow Rate FiO2 05/28/17 04:00 87 18 144/84 (104) 05/28/17 01:30 87 159/78 (105) 05/28/17 01:13 16 05/28/17 01:10 90 05/28/17 00:50 165/90 (115) 05/27/17 23:40 18 05/27/17 23:38 180/97 (124) 05/27/17 23:25 180/97 (124) 05/27/17 23:00 89 179/103 (128) 05/27/17 22:40 179/103 (128) 05/27/17 22:40 162/100 (120) 05/27/17 21:40 162/99 (120) 05/27/17 21:35 98.0 82 20 162/99 (120) 05/27/17 15:19 98.4 84 16 137/83 (101) 05/27/17 15:19 98.4 84 16 137/83 (101) 05/27/17 10:25 139/85 (103) 05/27/17 10:25 91 139/82 (101) 05/27/17 06:58 80 18 149/89 (109) Objective Remarks GENERAL: Well-nourished, well-developed patient. Resting. CARDIOVASCULAR: Regular rate and rhythm without murmurs, gallops, or rubs. RESPIRATORY: Breath sounds equal bilaterally. No accessory muscle use. ABDOMEN/GI: Abdomen soft, non-tender. Fundus: Firm, non-tender at umbilicus. GENITOURINARY: Light bleeding. EXTREMITIES: No cyanosis or edema, non-tender, without signs of DVT. Medications and IVs Current Medications Medications (Trade) Dose Ordered Sig/Robinson Route Start Time Stop Time Status Last Admin (Tylenol) 650 mg Q4H PRN PO 05/20/17 19:15 05/27/17 22:05 (Zofran Inj) 4 mg Q6H PRN IV PUSH 05/20/17 19:15 (Stuartnatal Plus 3 ) 1 tab DAILY PO 05/21/17 09:00 05/27/17 09:04 (Ambien) 5 mg HS PRN PO 05/20/17 19:15 05/27/17 23:49 (D50w (Vial) Inj) 50 ml UNSCH PRN IV PUSH 05/20/17 19:15 (Glucagon Inj) 1 mg STAT PRN IM 05/20/17 19:15 (Aldomet) 1,000 mg BID PO 05/20/17 20:00 05/27/17 22:05 (Pepcid) 20 mg Q12H PRN PO 05/21/17 14:30 05/23/17 21:07 Lactated Ringer's 1,000 ml @ 75 mls/hr [id number] IV 05/25/17 22:00 05/25/17 20:13 (Calcium Gluconate Inj) 1 gm ONCE PRN IV PUSH 05/25/17 22:00 06/01/17 21:59 Lactated Ringer's 1,000 ml @ 125 mls/hr Q8H IV 05/25/17 22:00 Lactated Ringer's 1,000 ml @ 3,000 mls/hr BOLUS PRN IV 05/25/17 22:00 Sodium Chloride 500 ml @ 1,000 mls/hr BOLUS PRN IV 05/25/17 22:00 Sodium Chloride 1,000 ml @ 100 mls/hr Q10H PRN IV 05/25/17 22:00 (Bicitra Liq) 30 ml PLASTERING SUPERVISOR PO 05/25/17 22:00 05/28/17 21:59 (Motrin) 600 mg Q6H PRN PO 05/25/17 23:45 05/27/17 22:05 (NS Flush) 2 ml BID IV FLUSH 05/26/17 09:00 (NS Flush) 2 ml UNSCH PRN IV FLUSH 05/26/17 00:45 (Percocet 5-325 Mg) 1 tab Q4H PRN PO 05/26/17 00:45 (Percocet 5-325 Mg) 2 tab Q4H PRN PO 05/26/17 00:45 (Americaine 20% Top Spr) 1 spray Q4H PRN TOPICAL 05/26/17 00:45 (Tucks Pads) 1 applic QID PRN TOPICAL 05/26/17 00:45 (Rachel-Colace) 2 tab Q12H PRN PO 05/26/17 00:45 05/27/17 00:17 (Mag-Al Plus Susp Liq) 15 ml Q8H PRN PO 05/26/17 00:45 (Trandate) 300 mg DAILY@0900,1500,2100 PO 05/27/17 09:00 05/27/17 22:05 (Pill Splitter) 1 ea UNSCH PRN OTHER 05/27/17 15:15 05/27/17 15:29 Assessment/Plan Problem List: (1) Chronic hypertension during , antepartum ICD Codes: O10.919 - Unspecified pre-existing hypertension complicating , unspecified trimester Status: Acute (2) 35 weeks gestation of ICD Codes: Z3A.35 - 35 weeks gestation of Status: Acute (3) Gestational diabetes ICD Codes: O24.419 - Gestational diabetes mellitus in , unspecified control Status: Acute Qualifiers: Qualified Codes: O24.410 - Gestational diabetes mellitus in , diet controlled (4) AMA (advanced maternal age) multigravida 35+ ICD Codes: O09.529 - Supervision of elderly multigravida, unspecified trimester Status: Acute Qualifiers: Qualified Codes: O09.523 - Supervision of elderly multigravida, third trimester Assessment and Plan 37 yo s/p at 35w2d on 05/25, she was admitted for severe blood pressures in setting of chronic hypertension since 05/20/17 1) CHTN: had severe range overnight requiring tx x1, pt asymptomatic, will continue with labetalol 300mg TID, consider increasing vs adding procarda XL, will keep until 24hr w/o sever range. - Prioor to delivery required escalation from aldomet 1000mg bid and labetalol 100mg bid to aldomet 1000mg bid and labetalol 400mg tid - s/p IV magnesium sulfate therapy, ended 05/26. yesterday; did require 1 dose of procardia yesterday for severe pressures 2) GDM: was well controlled with diet during , no need for continued BS monitoring at this time, will f/u PP w 2h gluocola 3) AMA 4) status: in NICU for prematurity but doing well, breathing on own & starting to take oral supplement yesterday. Desires Circ, will see if can do before d/c or will need done after. Discharge Planning not meeting criteria Gerardo Huff MD May 28, 2017 06:44
[2017-05-28] MEDS: MULTIVIT/MIN/PREN/FOL AC/IRON PRENATAL TAB PO SCH (08:39)
[2017-05-28] MEDS: METHYLDOPA 500 MG TAB PO SCH ×2 (08:40→20:40)
[2017-05-28] MEDS: LABETALOL HCL 200 MG TAB PO SCH ×3 (08:41→20:45)
[2017-05-28] MEDS ORDERED: ACETAMINOPHEN/HYDROcodone 325 MG/5 MG TAB PO PRN ×2 (10:15)
[2017-05-28] MEDS ORDERED: diphenhydrAMINE HCL 50 MG CAP PO PRN (10:15)
[2017-05-28] MEDS: IBUPROFEN 600 MG TAB PO PRN ×2 (13:00→20:40)
[2017-05-28] MEDS ORDERED: LABE200T2 PO (18:49)
[2017-05-28] MEDS ORDERED: METH500T PO (18:50)
[2017-05-28] MEDS: LACTATED RINGER'S 1000 ML IV SCH (20:34)
[2017-05-28] MEDS: DOCUSATE SODIUM 50 MG/SENNA 8.6 MG TAB PO PRN (20:40)
[2017-05-28] MEDS: SODIUM CHLORIDE 0.9% FLUSH 10 ML FLUSH IV FLUSH SCH (20:40)
[2017-05-29] VITALS (10 sets, daily range): BP systolic 111–181; BP diastolic 71–94; PULSE 85–102; RESP 18–20; TEMP 98
[2017-05-29] MEDS ORDERED: NIFEdipine 60 MG SUSTAINED RELEASE TAB PO ONE (01:00)
[2017-05-29] MEDS ORDERED: NIFEdipine 10 MG CAP PO ONE (01:00)
[2017-05-29 05:24] LABS: AUTOMATED NEUTROPHIL # 4.9 TH/MM3 (1.8-7.7); BASOPHIL % 0.4 % (0.0-2.0); EOSINOPHIL # 0.4 TH/MM3 (0-0.4); EOSINOPHIL % 4.6 % (0.0-4.0); HEMATOCRIT 32.7 % (35.0-46.0); HEMO FLAGS DIFF FINAL; LYMPH % 29.1 % (9.0-44.0); LYMPHOCYTE # 2.4 TH/MM3 (1.0-4.8); MEAN CELL VOLUME 83.2 FL (80.0-100.0); MEAN CORPUSCULAR HEMOGLOBIN 27.7 PG (27.0-34.0); MEAN CORPUSCULAR HGB CONC 33.3 % (32.0-36.0); NEUT % 58.9 % (16.0-70.0); PLATELET COUNT 200 TH/MM3 (150-450); RED BLOOD COUNT 3.93 MIL/MM3 (4.00-5.30); RED CELL DISTRIBUTION WIDTH 14.2 % (11.6-17.2); WHITE BLOOD COUNT 8.3 TH/MM3 (4.0-11.0)
[2017-05-29 05:47] LABS: ANION GAP 11 MEQ/L (5-15); AST (GOT) 32 U/L (15-37); BICARBONATE 23.4 MEQ/L (21.0-32.0); BLOOD UREA NITROGEN 12 MG/DL (7-18); CHLORIDE 104 MEQ/L (98-107); GLOMERULAR FILTRATION RATE 80 ML/MIN (>89); POTASSIUM 3.9 MEQ/L (3.5-5.1); SODIUM (NA) 138 MEQ/L (136-145)
[2017-05-29 05:48] LABS: ALT (GPT) 46 U/L (10-53)
[2017-05-29 05:50] LABS: ALKALINE PHOSPHATASE 65 U/L (45-117); TOTAL BILIRUBIN ADULT 0.2 MG/DL (0.2-1.0)
[2017-05-29] MEDS: LACTATED RINGER'S 1000 ML INJ 1,000 ML IV SCH (06:00)
[2017-05-29] MEDS: LACTATED RINGER'S 1000 ML IV SCH (06:00)
--- NOTE | 2017-05-29 07:14 | HHI.OB ---
Subjective Post Day: 4 Remarks Doing well, denies headache, blurred vision, epigastric pain, ventilating within cycle Objective Vitals/I&O Vital Signs Date Time Temp Pulse Resp B/P (MAP) Pulse Ox O2 Delivery O2 Flow Rate FiO2 05/29/17 04:40 91 136/82 (100) 05/29/17 04:40 18 05/29/17 02:13 86 148/86 (106) 05/29/17 00:45 85 20 05/29/17 00:45 181/94 (123) 05/28/17 23:45 80 20 160/89 (112) 05/28/17 22:30 89 179/96 (123) 05/28/17 20:40 97.9 82 20 152/93 (112) 99 05/28/17 12:35 98.1 84 16 143/93 (110) 05/28/17 08:40 97.6 88 16 117/75 (89) 98 Other Results BP range overnight 136-181/82-96 Objective Remarks GENERAL: Well-nourished, well-developed patient. Resting. CARDIOVASCULAR: Regular rate and rhythm without murmurs, gallops, or rubs. RESPIRATORY: Breath sounds equal bilaterally. No accessory muscle use. ABDOMEN/GI: Abdomen soft, non-tender. Fundus: Firm, non-tender at umbilicus. GENITOURINARY: Light bleeding. EXTREMITIES: No cyanosis or edema, non-tender, without signs of DVT. Medications and IVs Current Medications Medications (Trade) Dose Ordered Sig/Robinson Route Start Time Stop Time Status Last Admin (Tylenol) 650 mg Q4H PRN PO 05/20/17 19:15 05/27/17 22:05 (Zofran Inj) 4 mg Q6H PRN IV PUSH 05/20/17 19:15 (Stuartnatal Plus 3 ) 1 tab DAILY PO 05/21/17 09:00 05/28/17 08:39 (Ambien) 5 mg HS PRN PO 05/20/17 19:15 05/27/17 23:49 (D50w (Vial) Inj) 50 ml UNSCH PRN IV PUSH 05/20/17 19:15 (Glucagon Inj) 1 mg STAT PRN IM 05/20/17 19:15 (Pepcid) 20 mg Q12H PRN PO 05/21/17 14:30 05/23/17 21:07 Lactated Ringer's 1,000 ml @ 75 mls/hr [id number] IV 05/25/17 22:00 05/25/17 20:13 (Calcium Gluconate Inj) 1 gm ONCE PRN IV PUSH 05/25/17 22:00 06/01/17 21:59 Lactated Ringer's 1,000 ml @ 125 mls/hr Q8H IV 05/25/17 22:00 Lactated Ringer's 1,000 ml @ 3,000 mls/hr BOLUS PRN IV 05/25/17 22:00 Sodium Chloride 500 ml @ 1,000 mls/hr BOLUS PRN IV 05/25/17 22:00 Sodium Chloride 1,000 ml @ 100 mls/hr Q10H PRN IV 05/25/17 22:00 (Motrin) 600 mg Q6H PRN PO 05/25/17 23:45 05/28/17 20:40 (NS Flush) 2 ml BID IV FLUSH 05/26/17 09:00 05/28/17 20:40 (NS Flush) 2 ml UNSCH PRN IV FLUSH 05/26/17 00:45 (Americaine 20% Top Spr) 1 spray Q4H PRN TOPICAL 05/26/17 00:45 (Tucks Pads) 1 applic QID PRN TOPICAL 05/26/17 00:45 (Rachel-Colace) 2 tab Q12H PRN PO 05/26/17 00:45 05/28/17 20:40 (Mag-Al Plus Susp Liq) 15 ml Q8H PRN PO 05/26/17 00:45 (Pill Splitter) 1 ea UNSCH PRN OTHER 05/27/17 15:15 05/27/17 15:29 ([place] 5-325 Mg) 1 tab Q4H PRN PO 05/28/17 10:15 ([place] 5-325 Mg) 2 tab Q4H PRN PO 05/28/17 10:15 (Benadryl) 50 mg Q6H PRN PO 05/28/17 10:15 (Trandate) 500 mg TID PO 05/29/17 09:00 (Procardia Xl) 60 mg DAILY PO 05/29/17 09:00 Assessment/Plan Problem List: (1) Chronic hypertension during , antepartum ICD Codes: O10.919 - Unspecified pre-existing hypertension complicating , unspecified trimester Status: Acute (2) 35 weeks gestation of ICD Codes: Z3A.35 - 35 weeks gestation of Status: Acute (3) Gestational diabetes ICD Codes: O24.419 - Gestational diabetes mellitus in , unspecified control Status: Acute Qualifiers: Qualified Codes: O24.410 - Gestational diabetes mellitus in , diet controlled (4) AMA (advanced maternal age) multigravida 35+ ICD Codes: O09.529 - Supervision of elderly multigravida, unspecified trimester Status: Acute Qualifiers: Qualified Codes: O09.523 - Supervision of elderly multigravida, third trimester Assessment and Plan 37 yo s/p at 35w2d on 05/25, she was admitted for severe blood pressures in setting of chronic hypertension since 05/20 1) CHTN: had severe range overnight requiring tx x1, modified her blood pressures, added Procardia 60 XL daily, increase labetalol to 500 mg 3 times a day, discontinued Aldomet. Will continue observations additional 24 hours Pt asymptomatic, collected HELLP labs this morning. - Prioor to delivery required escalation from aldomet 1000mg bid and labetalol 100mg bid to aldomet 1000mg bid and labetalol 400mg tid - s/p IV magnesium sulfate therapy, ended 05/26. yesterday; did require 1 dose of procardia yesterday for severe pressures 2) GDM: was well controlled with diet during , no need for continued BS monitoring at this time, will f/u PP w 2h gluocola 3) AMA: No intervention needed 4) status: in NICU for prematurity but doing well, breathing on own & starting to take oral supplement yesterday. Desires Circ, will see if can do before d/c or will need done after. Discharge Planning not meeting criteria Gerardo Huff MD May 29, 2017 07:14
[2017-05-29] MEDS: MULTIVIT/MIN/PREN/FOL AC/IRON PRENATAL TAB PO SCH (08:40)
[2017-05-29] MEDS: LABETALOL HCL 200 MG TAB PO SCH ×3 (08:40→19:13)
[2017-05-29] MEDS ORDERED: NIFEdipine 60 MG SUSTAINED RELEASE TAB PO SCH ×2 (09:00→21:00)
[2017-05-29] MEDS: NIFEdipine 30 MG SUSTAINED RELEASE TAB PO SCH (21:20)
[2017-05-30] MEDS ORDERED: LABE200T2 PO (07:51)
[2017-05-30] MEDS ORDERED: NIFE30TA8 PO (07:51)
[2017-05-30 08:20] VITALS: BP 152/93; PULSE 86; RESP 16; TEMP 98.1
--- NOTE | 2017-05-30 08:23 | HHI.OB ---
Subjective Post Day: 5 Remarks doing well, ready for d/c home today Objective Vitals/I&O Vital Signs Date Time Temp Pulse Resp B/P (MAP) Pulse Ox O2 Delivery O2 Flow Rate FiO2 05/29/17 22:00 123/83 (96) 05/29/17 21:24 142/86 (104) 05/29/17 19:40 96 20 142/89 (106) 05/29/17 19:40 98.0 05/29/17 18:38 118/80 (93) 05/29/17 14:02 134/86 (102) 05/29/17 11:15 111/73 (86) Other Results BP range overnight 136-181/82-96 Objective Remarks GENERAL: Well-nourished, well-developed patient. Resting. CARDIOVASCULAR: Regular rate and rhythm without murmurs, gallops, or rubs. RESPIRATORY: Breath sounds equal bilaterally. No accessory muscle use. ABDOMEN/GI: Abdomen soft, non-tender. Fundus: Firm, non-tender at umbilicus. GENITOURINARY: Light bleeding. EXTREMITIES: No cyanosis or edema, non-tender, without signs of DVT. Medications and IVs Current Medications Medications (Trade) Dose Ordered Sig/Robinson Route Start Time Stop Time Status Last Admin (Tylenol) 650 mg Q4H PRN PO 05/20/17 19:15 05/27/17 22:05 (Zofran Inj) 4 mg Q6H PRN IV PUSH 05/20/17 19:15 (Stuartnatal Plus 3 ) 1 tab DAILY PO 05/21/17 09:00 05/29/17 08:40 (Ambien) 5 mg HS PRN PO 05/20/17 19:15 05/27/17 23:49 (D50w (Vial) Inj) 50 ml UNSCH PRN IV PUSH 05/20/17 19:15 (Glucagon Inj) 1 mg STAT PRN IM 05/20/17 19:15 (Pepcid) 20 mg Q12H PRN PO 05/21/17 14:30 05/23/17 21:07 Lactated Ringer's 1,000 ml @ 75 mls/hr [id number] IV 05/25/17 22:00 05/25/17 20:13 (Calcium Gluconate Inj) 1 gm ONCE PRN IV PUSH 05/25/17 22:00 06/01/17 21:59 Lactated Ringer's 1,000 ml @ 125 mls/hr Q8H IV 05/25/17 22:00 Lactated Ringer's 1,000 ml @ 3,000 mls/hr BOLUS PRN IV 05/25/17 22:00 Sodium Chloride 500 ml @ 1,000 mls/hr BOLUS PRN IV 05/25/17 22:00 Sodium Chloride 1,000 ml @ 100 mls/hr Q10H PRN IV 05/25/17 22:00 (Motrin) 600 mg Q6H PRN PO 05/25/17 23:45 05/28/17 20:40 (NS Flush) 2 ml BID IV FLUSH 05/26/17 09:00 05/28/17 20:40 (NS Flush) 2 ml UNSCH PRN IV FLUSH 05/26/17 00:45 (Americaine 20% Top Spr) 1 spray Q4H PRN TOPICAL 05/26/17 00:45 (Tucks Pads) 1 applic QID PRN TOPICAL 05/26/17 00:45 (Rachel-Colace) 2 tab Q12H PRN PO 05/26/17 00:45 05/28/17 20:40 (Mag-Al Plus Susp Liq) 15 ml Q8H PRN PO 05/26/17 00:45 (Pill Splitter) 1 ea UNSCH PRN OTHER 05/27/17 15:15 05/27/17 15:29 ([place] 5-325 Mg) 1 tab Q4H PRN PO 05/28/17 10:15 ([place] 5-325 Mg) 2 tab Q4H PRN PO 05/28/17 10:15 (Benadryl) 50 mg Q6H PRN PO 05/28/17 10:15 (Trandate) 500 mg TID PO 05/29/17 09:00 05/29/17 19:13 (Procardia Xl) 30 mg DAILY PO 05/29/17 21:00 05/29/17 21:20 Assessment/Plan Problem List: (1) Chronic hypertension during , antepartum ICD Codes: O10.919 - Unspecified pre-existing hypertension complicating , unspecified trimester Status: Acute (2) 35 weeks gestation of ICD Codes: Z3A.35 - 35 weeks gestation of Status: Acute (3) Gestational diabetes ICD Codes: O24.419 - Gestational diabetes mellitus in , unspecified control Status: Acute Qualifiers: Qualified Codes: O24.410 - Gestational diabetes mellitus in , diet controlled (4) AMA (advanced maternal age) multigravida 35+ ICD Codes: O09.529 - Supervision of elderly multigravida, unspecified trimester Status: Acute Qualifiers: Qualified Codes: O09.523 - Supervision of elderly multigravida, third trimester Assessment and Plan 37 yo s/p at 35w2d on 05/25, she was admitted for severe blood pressures in setting of chronic hypertension since 05/20 1) CHTN: BPs x 24hrs have been normotensive with a few mild ranges, will d/c home w/ current regime of Procardia 30 XL daily and labetalol to 500 mg 3 times a day 2) GDM: was well controlled with diet during , no need for continued BS monitoring at this time, will f/u PP w 2h gluocola 3) AMA: No intervention needed 4) status: in NICU for prematurity but doing well, breathing on own & starting to take oral supplement yesterday. Desires Circ, will see if can do before d/c or will need done after. Discharge Planning not meeting criteria Gerardo Huff MD May 30, 2017 08:23
[2017-05-30] MEDS: MULTIVIT/MIN/PREN/FOL AC/IRON PRENATAL TAB PO SCH (08:28)
[2017-05-30] MEDS: NIFEdipine 30 MG SUSTAINED RELEASE TAB PO SCH (08:28)
[2017-05-30] MEDS: LABETALOL HCL 200 MG TAB PO SCH (08:28)
[2017-06-01 10:16] LABS: BATH SALTS (MDPV) UR NEG (NEG); ECSTASY (MDMA) UR NEG (NEG); HEROIN (6-ACETYLMORPHINE) UR NEG (NEG); K2 SPICE UR NEG (NEG); OBGABAPENTIN UR NEG (NEG); OBHYDROMORPHONE U NEG (NEG); OBMETHADONE UR NEG (NEG); PHENCYCLIDINE URINE NEG (NEG)
== END 2017-05-30 13:11 | disposition home or self-care (01) | DRG 774 ==
LOC: HOBED 16:19 → H2EA 18:34 → OBSVTOIN 05-24 07:20 → H2EB 05-25 20:55 → H2EA 05-26 00:27 → H1EA 05-26 15:22
PROVIDERS: ADMIT Obstetrics & Gynecology; ATTEND Obstetrics & Gynecology
PROC: 00HU33Z Insertion of Infusion Device into Spinal Canal, Percutaneous Approach (ICD-10-PCS; 2017-05-24)
PROC: 3E0R3BZ Introduction of Anesthetic Agent into Spinal Canal, Percutaneous Approach (ICD-10-PCS; 2017-05-24)
PROC: 10E0XZZ Delivery of Products of Conception, External Approach (ICD-10-PCS; principal; 2017-05-25)
DX: O10.92 Unspecified pre-existing hypertension complicating childbirth (principal); O60.14X0 Preterm labor third trimester with preterm delivery third trimester, not applicable or unspecified; Z37.0 Single live birth; Z3A.35 35 weeks gestation of pregnancy; O24.420 Gestational diabetes mellitus in childbirth, diet controlled; O69.81X0 Labor and delivery complicated by cord around neck, without compression, not applicable or unspecified; O76 Abnormality in fetal heart rate and rhythm complicating labor and delivery; O12.14 Gestational proteinuria, complicating childbirth
CPT/HCPCS: 59025; 76816; 76819; 76820; 76937; 80053; 80076; 80307; 81001; 82570; 82805; 82948; 84112; 84157; 84550; 85025; 85027; 86850; 86900; 86901; 87081; 87150; 88307; G0378; G0481; J0702; J2270; J2590; J3105; J3475; J7120